=== PATIENT | male | born 1970 | race Two or more races ===

== ENCOUNTER 2018-02-16 11:49 | Emergency (ER) | payer SELFPAY ==
[2018-02-16 11:53] VITALS: BP 146/94
[2018-02-16] MEDS ORDERED: LIDOCAINE 2% VISCOUS SOLN 20 ML UDCUP PO ONE (12:40)
--- NOTE | 2018-02-16 12:46 | ER Document Report ---
HPI - HPI Pain Level: 5 Notes: Patient is a 47-year-old male with no significant past medical history who presents to the ED complaining of right lower dental pain #311 week. Patient states that he does have an appointment scheduled with a dentist in April, but has had continued pain and intermittent swelling on the right side of his face. Patient states that the pain will radiate up towards his right ear. He has not noticed any other obvious abscess or discharge. He is eating and drinking without any difficulties. He is urinating normally and having normal bowel movements. Patient does admit to smoking but denies IV drug use. Patient does note an allergy to penicillins which causes a rash. Denies any headache, fever , head injury, neck pain, URI, sore throat, chest pain, palpitations, syncope, cough, shortness of breath, wheeze, dyspnea, abdominal pain, nausea/vomiting/ diarrhea, urinary retention, dysuria, hematuria, or rash. - ROS Systems Reviewed and Negative: Yes All other systems reviewed and negative - CONSTITUTIONAL Constitutional: DENIES: Fever, Chills - EENT EENT: REPORTS: Ear Pain - right ear. DENIES: Sore Throat, Eye problems - NEURO Neurology: REPORTS: Headache. DENIES: Weakness, Vision blurred, Dizzinesss / Vertigo - CARDIOVASCULAR Cardiovascular: DENIES: Chest pain - RESPIRATORY Respiratory: DENIES: Trouble Breathing, Coughing - GASTROINTESTINAL Gastrointestinal: DENIES: Abdominal Pain, Black / Bloody Stools - URINARY Urinary: DENIES: Dysuria, Urgency, Frequency - REPRODUCTIVE Reproductive: DENIES: : - MUSCULOSKELETAL Musculoskeletal: DENIES: Extremity pain Past Medical History - Social History Smoking Status: Current Every Day Smoker Chew tobacco use (# tins/day): No Frequency of alcohol use: None Drug Abuse: None Family History: Reviewed & Not Pertinent Patient has suicidal ideation: No Patient has homicidal ideation: No Pulmonary Medical History: Reports: Hx Asthma - as child Renal/ Medical History: Denies: Hx Peritoneal Dialysis - Immunizations Hx Diphtheria, Pertussis, Tetanus Vaccination: Yes Vertical Provider Document - CONSTITUTIONAL Agree With Documented VS: Yes Notes: PHYSICAL EXAMINATION: GENERAL: Well-appearing, well-nourished and in no acute distress. HEAD: Atraumatic, normocephalic. EYES: Pupils equal round and reactive to light, extraocular movements intact, sclera anicteric, conjunctiva are normal. ENT: EAC clear b/l. TM's intact b/l without erythema, fluid, or perforation. Nares patent and without discharge. oropharynx clear without exudates. No tonsilar hypertrophy or erythema. Moist mucous membranes. No sinus tenderness. Uvula midline. No palatine shift. No tongue protrusion. No respiratory compromise. Mouth: Poor dentition. + mild decay and mild gingivitis. No obvious abscess or discharge noted. No facial swelling. + tenderness to tooth #31. NECK: Normal range of motion, supple without lymphadenopathy. No rigidity/ meningismus. LUNGS: Breath sounds clear to auscultation bilaterally and equal. No wheezes rales or rhonchi. HEART: Regular rate and rhythm without murmurs, rubs, gallops. NEUROLOGICAL: Cranial nerves grossly intact. Normal speech, normal gait. Normal sensory, motor exams PSYCH: Normal mood, normal affect. SKIN: Warm, Dry, normal turgor, no rashes or lesions noted. - INFECTION CONTROL TRAVEL OUTSIDE OF THE [place] IN LAST 30 DAYS: No Course - Re-evaluation Re-evalutation: 02/16/18 12:48 Patient is an afebrile, well-hydrated, 47-year-old male who presents to the ED with dental pain #31, suspect nerve root etiology versus infection. Vitals are acceptable. PE is otherwise unremarkable. No incision and drainage is warranted at this time. No labs or imaging warranted at this time based on H& P. Patient is tolerating p.o. without any difficulties. Patient was given viscous lidocaine as well as a prescription for clindamycin as he is allergic to penicillins. Low suspicion for any meningitis, sepsis, peritonsillar/ pharyngeal abscess, respiratory compromise, Reji's, temporal arteritis, or other emergent systemic condition at this time. Patient is aware this condition can change from initial presentation and he needs to monitor symptoms closely. Conservative measures otherwise for symptoms. Call to schedule an appointment with a dentist for further evaluation and management or keep scheduled appointment. Recheck with your PCM this week as well. Return to the ED with any worsening/concerning symptoms otherwise as reviewed in discharge. Patient is in agreement. - Vital Signs Vital signs: Temp Pulse Resp BP Pulse Ox 97.9 F 91 14 146/94 H 97 02/16/18 11:52 02/16/18 11:52 02/16/18 11:52 02/16/18 11:52 02/16/18 11:52 Discharge - Discharge Clinical Impression: Pain, dental Condition: Stable Disposition: HOME, SELF-CARE Instructions: Toothache ([facility]), Clindamycin ([facility]) Additional Instructions: [place] and floss twice daily Maintain fluid intake Take antibiotics as directed Mouthwash, salt water gargles, peroxide rinse as needed Tylenol/ibuprofen as needed Recheck with PCM this week Call today/tomorrow and schedule an appointment with your dentist for further evaluation or keep scheduled appointment in April Return to the ED with any worsening symptoms and/or development of fever, headache, facial swelling, swelling of lips/tongue/throat, trouble swallowing, drooling, hoarseness, neck pain/stiffness, chest pain, palpitations, syncope, shortness of breath, trouble breathing, abdominal pain, n/v/d, numbness/tingling , or other worsening symptoms that are concerning to you. Prescriptions: Clindamycin HCl [Cleocin 300 mg Capsule] 300 mg PO TID #30 capsule Forms: Elevated Blood Pressure, Smoking Cessation Education Referrals: [facility] [Provider Group] - Follow up as needed
== END 2018-02-16 12:50 | disposition home or self-care (01) ==
LOC: ER 11:49
DX: K02.9 Dental caries, unspecified (principal); K05.10 Chronic gingivitis, plaque induced; K08.89 Other specified disorders of teeth and supporting structures; R51 Headache; H92.01 Otalgia, right ear; F17.200 Nicotine dependence, unspecified, uncomplicated; Z88.0 Allergy status to penicillin
CPT/HCPCS: 99282; J3490

== ENCOUNTER 2018-02-19 19:06 | Emergency (ER) | payer SELFPAY ==
[2018-02-19] MEDS ORDERED: DIPH/PERTUSS(ACELL)/TETANUS VAC/PF 0.5 ML SYR (>=10YO) IM ONE (19:22)
[2018-02-19] MEDS ORDERED: AMLODIPINE BESYLATE 5 MG TABLET PO ONE (19:31)
[2018-02-19] MEDS ORDERED: ACETAMINOPHEN 325 MG TABLET PO ONE (19:31)
--- NOTE | 2018-02-19 20:12 | RADIOLOGY REPORT (SQ) ---
EXAM DESCRIPTION: HAND LEFT 3 VIEWS COMPLETED DATE/TIME: 02/19/2018 7:59 pm REASON FOR STUDY: gulshan nail into hand COMPARISON: None. EXAM PARAMETERS: NUMBER OF VIEWS: Three views. TECHNIQUE: AP, lateral and oblique radiographic images acquired of the left hand. LIMITATIONS: None. FINDINGS: MINERALIZATION: Normal. BONES: No acute fracture or dislocation. No worrisome bone lesions. JOINTS: No effusions. SOFT TISSUES: No soft tissue swelling. No foreign body. OTHER: No other significant finding. IMPRESSION: NEGATIVE STUDY OF THE LEFT HAND. NO RADIOGRAPHIC EVIDENCE OF ACUTE INJURY. TECHNICAL DOCUMENTATION: JOB ID: [id number] [employer]- All Rights Reserved Reading location - IP/workstation name: [email or web address]
--- NOTE | 2018-02-19 20:14 | ER Document Report ---
ED Hand/Wrist Injury - General Chief Complaint: Hand Injury Stated Complaint: HAND INJURY Time Seen by Provider: 02/19/18 19:15 Mode of Arrival: Ambulatory Information source: Patient Notes: 47-year-old male presents to ED for complaint of cutting his hand on a gulshan nail around 130 this afternoon. He states that a hard time making a fist since he injured his hand. He states his last tetanus shot was at least 30 years ago. TRAVEL OUTSIDE OF THE [place] IN LAST 30 DAYS: No - HPI Injury to: Hand Onset: This afternoon Where: Outdoors Timing: Still present Quality of pain: Achy, Throbbing Severity: Moderate Pain Level: 4 Context: Other - Nail to the palm of the left hand - Related Data Allergies/Adverse Reactions: Penicillins Allergy (Verified 02/16/18 11:49) Past Medical History - General Information source: Patient - Social History Smoking Status: Current Every Day Smoker Cigarette use (# per day): Yes - 2-2-1/2 packs per day Chew tobacco use (# tins/day): No Smoking Education Provided: Yes - 4 minutes Frequency of alcohol use: None Drug Abuse: None Occupation: Cook Lives with: Spouse/Significant other Family History: CAD, CVA, Hyperlipidemia, Hypertension, Malignancy. denies: Arthritis, COPD, DM, Thyroid Disfunction Patient has suicidal ideation: No Patient has homicidal ideation: No - Past Medical History Cardiac Medical History: Reports: None Pulmonary Medical History: Reports: Hx Asthma - as child EENT Medical History: Reports: None Neurological Medical History: Reports: None Endocrine Medical History: Reports: None Renal/ Medical History: Reports: None Malignancy Medical History: Reports None GI Medical History: Reports: None Musculoskeltal Medical History: Reports None Skin Medical History: Reports None Psychiatric Medical History: Reports: None Traumatic Medical History: Reports: None Infectious Medical History: Reports: None Surgical Hx: Negative Past Surgical History: Reports: None - Immunizations Immunizations up to date: Yes Hx Diphtheria, Pertussis, Tetanus Vaccination: Yes - 02/19/2018 Review of Systems - Review of Systems Constitutional: No symptoms reported EENT: No symptoms reported Cardiovascular: No symptoms reported Respiratory: No symptoms reported Gastrointestinal: No symptoms reported Genitourinary: No symptoms reported Male Genitourinary: No symptoms reported Musculoskeletal: No symptoms reported Skin: Other - SD nail puncture wound to the left palm Hematologic/Lymphatic: No symptoms reported Neurological/Psychological: No symptoms reported Physical Exam - Vital signs Vitals: Temp Pulse Resp BP Pulse Ox 98.6 F 98 16 206/115 H 99 02/19/18 19:13 02/19/18 19:13 02/19/18 19:13 02/19/18 19:13 02/19/18 19:13 Interpretation: Normal - General General appearance: Appears well, Alert - HEENT Head: Normocephalic, Atraumatic Eyes: Normal Pupils: PERRL - Respiratory Respiratory status: No respiratory distress Chest status: Nontender Breath sounds: Normal Chest palpation: Normal - Cardiovascular Rhythm: Regular Heart sounds: Normal auscultation Murmur: No - Abdominal Inspection: Normal Distension: No distension Bowel sounds: Normal Tenderness: Nontender Organomegaly: No organomegaly - Back Back: Normal, Nontender - Extremities General upper extremity: Normal inspection, Normal color, Normal temperature General lower extremity: Normal inspection, Nontender, Normal color, Normal ROM , Normal temperature, Normal weight bearing. No: Trevor's sign Hand: Tender, No evidence of human bite, No evidence of FB, Other - States he injured his hand on a gulshan nail to the palm of the left hand - Neurological Neuro grossly intact: Yes Cognition: Normal Orientation: AAOx4 [place] Coma Scale Eye Opening: Spontaneous [place] Coma Scale Verbal: Oriented [place] Coma Scale Motor: Obeys Commands [place] Coma Scale Total: 15 Speech: Normal Motor strength normal: LUE, RUE, LLE, RLE Sensory: Normal - Psychological Associated symptoms: Normal affect, Normal mood - Skin Skin Temperature: Warm Skin Moisture: Dry Skin Color: Normal Location of irregularity: Other - Puncture wound to the left hand Irregularity with: Swelling, Tenderness. negative: Warmth Course - Re-evaluation Re-evalutation: 02/19/18 20:[address] Tanner concering HTN with no symptom but no primary md. he recommended Norvasc 5 mg p.o. daily and to have him follow-up with her primary doctor. Patient was treated with Norvasc for his elevated blood pressure and given instructions to follow-up with a primary doctor within the next 2 weeks to have his blood pressure rechecked and started on a medication. I will give him 2 weeks worth of Norvasc to last until he gets a primary doctor. He was also treated with Keflex p.o. and tetanus immunization for his puncture wound to the left hand. Patient will be given a prescription for Keflex for this wound. He was also soaked in Betadine and water and given instructions on soaking in warm water and soap twice a day for the next 4 days and apply bacitracin to the injuries. Patient verbalized understanding and agreement with this treatment plan and he will be discharged home. 47 - Vital Signs Vital signs: Temp Pulse Resp BP Pulse Ox 98.6 F 78 16 182/111 H 100 02/19/18 20:36 02/19/18 20:36 02/19/18 20:36 02/19/18 20:36 02/19/18 20:36 - Diagnostic Test Radiology reviewed: Image reviewed, Reports reviewed Discharge - Discharge Clinical Impression: nail puncture wound to left hand HTN (hypertension) Qualifiers: Hypertension type: unspecified Qualified Code(s): I10 - Essential (primary) hypertension Condition: Stable Disposition: HOME, SELF-CARE Instructions: Family Physicians / Practices Additional Instructions: Puncture Wound You have a puncture wound. Because these wounds often penetrate deeply beneath the skin, you must observe them carefully for complications. The wound has been examined for retained foreign material and for damage to tendons and nerves. The area should be rested and elevated for 24 hours. Then you can use the injured part -- if moving it is painfree. Punctures of the hand or foot may require splinting or crutches. The dressing should be changed daily until the wound is healed. Watch for signs of infection. Call the doctor immediately if redness, swelling, warmth, increasing pain, or wound drainage occur. If you develop numbness, persistent bleeding, or inability to move the injured area, please return for prompt re-evaluation. High Blood Pressure, Requiring Treatment Your blood pressure is high. This is called "hypertension." Today's reading was___206/116 (normal is less than 140/90). Your history and exam suggest that this is not a temporary problem. You need treatment of your blood pressure. Pre-hypertension/Hypertension: The patient has been informed that they may have pre-hypertension or Hypertension based on a blood pressure reading in the emergency department. I recommend that the patient call the primary care provider listed on their discharge instructions or a physician of their choice this wee to arrange follow up for further evaluation of possible pre- hypertension or Hypertension. If left untreated, high blood pressure greatly increases your risk of heart attack and stroke. Please don't ignore this problem. If you have blood pressure medicine but aren't using it regularly, start taking it again. Some simple things you can do to help are: Get some aerobic exercise for at least 20 minutes on a daily basis. (See your doctor before beginning any new exercise program.) Eat a low-fat diet. Lose excess weight. Avoid salty foods and avoid adding salt to any of the foods you eat. Avoid diet pills, decongestants, "energizing" herbs, and other medicines that elevate blood pressure. There are many different medicines that treat blood pressure. If your medication causes unpleasant side effects, call your doctor. There are others you can try. Treating hypertension is a life-long investment in your health. Calcium Channel Blockers A medication of the calcium channel ky type has been prescribed for you. Examples of this type of medicine are Calan, Isoptin, Procardia, and Cardizem. These medicines have a variety of uses, including prevention of angina attacks, treatment of blood pressure, regulation of certain heart rhythm problems, and prevention of migraine headaches. Calcium channel blockers work by interfering with the flow of calcium in cell membranes. This results in dilation of blood vessels, and slowing of electrical conduction in the heart. A slight dizziness (due to a fall in blood pressure) may occur with the first dose, and sometimes even with later doses. This may make you prone to dizziness if you stand up suddenly. Call the doctor if lightheadedness is severe, or if you develop palpitations, shortness of breath, or any other new or alarming symptoms. Cephalexin The antibiotic you've been prescribed is a member of the cephalosporin class. This type of antibiotic covers a wide variety of infections, including those of the skin, lungs, and urinary tract. It's useful for staph infections. This antibiotic is slightly similar to the penicillin family. In rare cases , a person who is allergic to penicillin will also be allergic to this medication. If you have had a severe allergic reaction to penicillin, and have not taken this antibiotic since that time, notify your doctor. Antibiotics which cover many germs ("broad spectrum" antibiotics) are more likely to cause diarrhea or "yeast" infections. Women prone to vaginal yeast problems may suffer an attack after taking this antibiotic. In infants, oral thrush (white spots "stuck" on the cheek) or yeast diaper rash may result. See your doctor if these problems occur. Call at once if you develop itching, hives , shortness of breath, or lightheadedness. SOAP CLEANSING: Gently wash the wound daily using a mild soap (like Ivory, Phisoderm, Neutrogena). Use warm water, rubbing gently until all debris, ooze, and crusting have been washed from the wound. Allow to dry briefly (about 10 minutes) after cleaning. Repeat this cleansing at least three times a day for the first two days and then once or twice a day. ANTIBIOTIC OINTMENT PROTECTION: Your wounds are such that dressing them is not practical or optional. After cleansing, you should apply a thin coating of antibiotic ointment ( Bacitracin, not Neosporin) to the wounds at least three times daily. This lessens infection risk, and may decrease the amount of scarring. Use a q-tip or dull butter knife, not your finger, to apply this ointment. Any debris or ooze which builds up in the ointment should be gently rubbed off with a sterile gauze pad. Harder crusting may need to be gently scrubbed off with a clean wash cloth with soap and warm water, perhaps applying a warm, wet wash cloth to the wound for ten minutes first. Development of redness, severe itching, or blistering may mean allergy to the ointment. See the doctor. TETANUS IMMUNIZATION GIVEN: You have been given an immunization against tetanus. Please record this in your records. In general, a booster is needed only once every 10 years. The tetanus shot protects against tetanus or "lockjaw," which is a complication of certain wound infections (the tetanus shot cannot protect against the actual infection). The immunization site may become warm and red due to local reaction. If this occurs, apply warm compresses and take aspirin or ibuprofen to reduce inflammation and discomfort. Return for evaluation if the reaction becomes severe. FOLLOW-UP CARE: If you have been referred to a physician for follow-up care, call the physician s office for an appointment as you were instructed or within the next two days. If you experience worsening or a significant change in your symptoms, notify the physician immediately or return to the Emergency Department at any time for re-evaluation. Prescriptions: Amlodipine Besylate [Norvasc 5 mg Tablet] 5 mg PO DAILY #14 tablet Cephalexin Monohydrate [Keflex 500 mg Capsule] 500 mg PO QID #20 capsule Forms: Elevated Blood Pressure, Special Work Note, Smoking Cessation Education , Return to Work
[2018-02-19] MEDS ORDERED: CEPHALEXIN 500 MG CAPSULE PO ONE (20:16)
[2018-02-19 20:39] VITALS: BP 182/111
== END 2018-02-19 20:41 | disposition home or self-care (01) ==
LOC: ER 19:06
DX: S61.432A Puncture wound without foreign body of left hand, initial encounter (principal); W45.0XXA Nail entering through skin, initial encounter; Y99.0 Civilian activity done for income or pay; I10 Essential (primary) hypertension; F17.210 Nicotine dependence, cigarettes, uncomplicated; Z71.6 Tobacco abuse counseling; Z88.0 Allergy status to penicillin; Z23 Encounter for immunization
CPT/HCPCS: 90471; 90715; 99283

== ENCOUNTER 2018-04-06 18:57 | Emergency (ER) | payer SELFPAY ==
[2018-04-06] MEDS ORDERED: BUPIVACAINE HCL 0.5 % INJ/PF 30 ML SDV INJ ONE (19:21)
[2018-04-06] MEDS ORDERED: LIDOCAINE 1% INJ-PF (10 MG/ML) 30 ML SDV INJ ONE (19:21)
--- NOTE | 2018-04-06 19:21 | RADIOLOGY REPORT (SQ) ---
EXAM DESCRIPTION: FINGER LEFT COMPLETED DATE/TIME: 04/06/2018 7:09 pm REASON FOR STUDY: trauma, hammer COMPARISON: None. NUMBER OF VIEWS: Three views. TECHNIQUE: AP, lateral, and oblique images acquired of the left fourth finger. LIMITATIONS: None. FINDINGS: MINERALIZATION: Normal. BONES: No acute fracture or dislocation. No worrisome bone lesions. SOFT TISSUES: No soft tissue swelling. No foreign body. OTHER: No other significant finding. IMPRESSION: NO RADIOGRAPHIC EVIDENCE OF ACUTE INJURY. COMMENT: SITE OF TRAUMA/COMPLAINT MARKED/STAMP COMPLETED: YES. TECHNICAL DOCUMENTATION: JOB ID: [id number] [employer]- All Rights Reserved Reading location - IP/workstation name: [email or web address]
--- NOTE | 2018-04-06 19:24 | ER Document Report ---
ED Hand/Wrist Injury - General Chief Complaint: Finger Injury Stated Complaint: FINGER INJURY Time Seen by Provider: 04/06/18 19:08 Mode of Arrival: Ambulatory Information source: Patient TRAVEL OUTSIDE OF THE [place] IN LAST 30 DAYS: No - HPI Patient complains to provider of: left ring finger nail injury Onset: This afternoon Notes: Patient is here with complaints of left ring finger nail injury. He states he was using a hammer when he actually hit himself in the left ring finger and the base of the nail popped out of the cuticle. He states that he used nail clippers cut off the proximal aspect of his fingernail but the distal aspect is still attached to the finger nail bed. No redness or draining. Tetanus is up- to-date. No numbness, tingling, weakness. No fever. No significant pain. No other complaints at this time. No other injury. - Related Data Allergies/Adverse Reactions: Penicillins Allergy (Verified 04/06/18 18:58) Past Medical History - Social History Smoking Status: Current Every Day Smoker Chew tobacco use (# tins/day): No Frequency of alcohol use: None Drug Abuse: None Family History: CAD, CVA, Hyperlipidemia, Hypertension, Malignancy. denies: Arthritis, COPD, DM, Thyroid Disfunction Patient has suicidal ideation: No Patient has homicidal ideation: No Pulmonary Medical History: Reports: Hx Asthma - as child Renal/ Medical History: Denies: Hx Peritoneal Dialysis - Immunizations Immunizations up to date: Yes Hx Diphtheria, Pertussis, Tetanus Vaccination: Yes - 02/19/2018 Review of Systems - Review of Systems -: Yes All other systems reviewed and negative Physical Exam - Notes Notes: GENERAL: alert, cooperative, nontoxic, no distress. HEAD: normocephalic, atraumatic EYES: conjunctiva pink without discharge, no external redness or swelling. EARS: no external swelling, no external redness NOSE: atraumatic, no external swelling MOUTH/THROAT: mucous membranes moist and pink NECK: soft, supple, full range of motion, no meningismus. CHEST: no distress, lungs clear and equal throughout. No wheezing, rales, rhonchi. CARDIAC: regular rate and rhythm, no murmur, normal capillary refill, normal pulses. BACK: full range of motion, no CVA tenderness. EXTREMITIES: full range of motion of all extremities. No redness, no swelling. The proximal ring finger nail has been removed. The distal aspect is still attached the nail bed. There is no redness or swelling. No tenderness. Normal cap refill and sensation distally. NEURO: alert and oriented 3, no focal deficits, full range of motion of all extremities. PYSCH: appropriate mood, affect. Patient is cooperative. SKIN: pink, warm, dry, no rash. Course - Re-evaluation Re-evalutation: 04/06/18 20:23 Patient is nontoxic-appearing with stable vitals. Is here with injury to the left ring finger. He externally hit his fingernail with a hammer and the proximal portion of the nail was injured. He clipped this with fingernail clippers and was made to remove the remainder of the nail. No fever. No redness or drainage. No numbness, tingling, weakness. On exam he has no signs of infection or foreign body. I was able to perform a digital block and per remove the remainder of the fingernail. There is no obvious signs of infection. There is a small bit of nail in the cuticle area. Patient will be discharged home with instructions to keep the area clean and dry. Her prescription for Naprosyn. Follow-up if not better in the next week, sooner for worsening pain, fever, redness, drainage, any further concerns. The patient is noted to have elevated blood pressure during today's emergency department visit. The patient was informed of this finding. The patient was instructed that this may be related to pre-hypertension and requires further evaluation with a primary care provider. The patient has no hypertensive symptoms at this time. The patient's emergency department workup and current diagnosis were explained to the patient and or family. Follow-up instructions were provided. Medications if prescribed were discussed. Instructions for when to return to the emergency department including specific worrisome symptoms were discussed with the patient and/or family. - Diagnostic Test Radiology reviewed: Image reviewed, Reports reviewed - X-ray negative of the left hand Procedures - Laceration/Wound Repair left ring fingernail Wound length (cm): 1 Wound's Depth, Shape: Other - Partial nail avulsion Laceration pre-procedure: Sterile PPE donned, Shur-Clens applied Anesthetic type: 0.5% Bupivacaine Wound explored: Clean, No foreign body removed Notes: 06/03/18 20:26 The distal portion of the left ring finger fingernail was easily removed with scissors. Sterile dressing was applied. He does appear to be a small bit of nail still in the cuticle which will believe they are to encourage new nail growth. No signs of infection at this time. Patient tolerated procedure well. Discharge - Discharge Clinical Impression: Fingernail avulsion, partial Qualifiers: Encounter type: initial encounter Qualified Code(s): S61.309A - Unspecified open wound of unspecified finger with damage to nail, initial encounter Condition: Stable Disposition: HOME, SELF-CARE Instructions: Avulsed Nail ([facility]) Additional Instructions: Take medication as needed for pain. Tylenol as needed for pain. Keep wound clean and dry. Follow-up if not better in 1 week, sooner for worsening pain, fever, redness, swelling, drainage, numbness, tingling, weakness, persistent vomiting, or for any further concerns. Your blood pressure was elevated during today's visit. Have this rechecked with your doctor. Prescriptions: Naproxen [Naprosyn] 500 mg PO BID #20 tablet Forms: Elevated Blood Pressure, Smoking Cessation Education, Restricted Release Referrals: [facility] [Provider Group] - Follow up as needed
== END 2018-04-06 20:46 | disposition home or self-care (01) ==
LOC: ER 18:57
PROC: 0HDQXZZ Extraction of Finger Nail, External Approach (ICD-10-PCS; principal; 2018-04-06)
DX: S61.309A Unspecified open wound of unspecified finger with damage to nail, initial encounter (principal); F17.200 Nicotine dependence, unspecified, uncomplicated; W22.8XXA Striking against or struck by other objects, initial encounter; Z88.0 Allergy status to penicillin
CPT/HCPCS: 99283; 73140; 11730; J3490 ×2

== ENCOUNTER 2019-03-24 08:15 | Emergency (ER) | payer SELFPAY ==
[2019-03-24] MEDS ORDERED: AMLODIPINE BESYLATE 5 MG TABLET PO ONE (10:22)
--- NOTE | 2019-03-24 10:36 | ER Document Report ---
ED General - General Chief Complaint: Vomiting/Diarrhea Stated Complaint: HEADACHE Time Seen by Provider: 03/24/19 10:22 Information source: Patient Notes: 48-year-old male with past medical history of high blood pressure who presents today with the onset yesterday of an intermittent frontal headache. No blurry vision. No trauma. No weakness or numbness. Patient denies any aggravating or relieving factors. Patient's been told that he has high blood pressure and is supposed to be taking blood pressure medications. He states "I do not like pills". He has not taken his blood pressure medications in greater than 1 year. He does not remember what those blood pressure medications are. Patient denies any chest pain, leg swelling, focal weakness or numbness. Patient has had 2 episodes of nonbilious nonbloody vomiting in the last 24 hours. TRAVEL OUTSIDE OF THE [place] IN LAST 30 DAYS: No - Related Data Allergies/Adverse Reactions: Penicillins Allergy (Verified 03/24/19 08:15) Past Medical History - Social History Smoking Status: Current Every Day Smoker Family History: CAD, CVA, Hyperlipidemia, Hypertension, Malignancy. denies: Arthritis, COPD, DM, Thyroid Disfunction Patient has suicidal ideation: No Patient has homicidal ideation: No Pulmonary Medical History: Reports: Hx Asthma - as child Renal/ Medical History: Denies: Hx Peritoneal Dialysis - Immunizations Immunizations up to date: Yes Hx Diphtheria, Pertussis, Tetanus Vaccination: Yes - 02/19/2018 Review of Systems - Review of Systems Constitutional: denies: Fever EENT: denies: Blurred vision Cardiovascular: denies: Chest pain, Palpitations Respiratory: denies: Short of breath Gastrointestinal: Vomiting Genitourinary: denies: Dysuria Musculoskeletal: denies: Leg swelling Neurological/Psychological: Other - no slurred speech -: Yes All other systems reviewed and negative Physical Exam - Vital signs Vitals: Temp Pulse Resp BP Pulse Ox 97.9 F 77 18 209/104 H 98 03/24/19 08:19 03/24/19 08:19 03/24/19 08:19 03/24/19 08:19 03/24/19 08:19 Notes: Reviewed vital signs and nursing note as charted by RN. CONSTITUTIONAL: Alert and oriented and responds appropriately to questions. Well-appearing; well-nourished HEAD: Normocephalic; atraumatic EYES: PERRL; full extraocular range of motion ENT: Normal nose; no rhinorrhea; moist mucous membranes; pharynx without lesions noted NECK: Supple without meningismus; non-tender; no cervical lymphadenopathy, no masses CARD: Regular rate and rhythm; no murmurs; symmetric distal pulses RESP: Normal chest excursion without splinting or tachypnea; breath sounds clear and equal bilaterally ABD/GI: Normal bowel sounds; non-distended; soft, non-tender BACK: The back appears normal and is non-tender to palpation EXT: Normal ROM in all joints; non-tender to palpation; no edema SKIN: No acute lesions noted NEURO: CN 2-12 intact; 5/5 bilateral upper and lower extremity strength with sensation intact to light touch PSYCH: The patient's mood and manner are appropriate. Grooming and personal hygiene are appropriate. Course - Re-evaluation Re-evalutation: 03/24/19 10:36 Given the above history and physical examination, with blood pressure as recorded, noncompliant with medications, I will obtain a basic CBC, chemistry, CT scan of the head, and reassess. Given the intermittent nature of the headac hes, with no trauma, not the worst headache of his life, no neck pain, no fevers, no blurry vision, no temporal erythema or tenderness, I do believe subarachnoid hemorrhage, bacterial meningitis, temporal arteritis, and/or acute angle-closure glaucoma to be extremely unlikely at this time. I have convinced the patient that he should be taking Norvasc or other blood pressure medication. He has agreed. I will provide a one-time dose here in the emergency department. 03/24/19 11:22 CT imaging as recorded. Labs as recorded. Patient has no abdominal pain. No focal neurological deficits. Patient's headache is improved. I will start the patient on a short course of Norvasc with strict return precautions and follow- up with the primary care provider. - Vital Signs Vital signs: Temp Pulse Resp BP Pulse Ox 97.9 F 77 18 209/104 H 98 03/24/19 08:19 03/24/19 08:19 03/24/19 08:19 03/24/19 08:19 03/24/19 08:19 - Laboratory Result Diagrams: 03/24/19 10:29 03/24/19 10:29 Laboratory results interpreted by me: 03/24/19 10:29 Chloride 109 H Total Bilirubin 1.4 H ALT 74 H Discharge - Discharge Clinical Impression: Hypertensive urgency Headache Qualifiers: Headache type: unspecified Headache chronicity pattern: unspecified pattern Intractability: not intractable Qualified Code(s): R51 - Headache Condition: Good Disposition: HOME, SELF-CARE Additional Instructions: Come back immediately for any increased pain, weakness or numbness, fevers or vomiting, blurry vision, chest pain, leg swelling, or any other acute problems. Please start taking the Norvasc 5 mg daily as discussed and please follow-up with your primary care provider.
[2019-03-24 10:51] LABS: ABSOLUTE EOSINOPHILS # (AUTO) 0.1 10^3/uL (0.0-0.6); ABSOLUTE LYMPHOCYTES (AUTO) 1.7 10^3/uL (0.5-4.7); ABSOLUTE MONOCYTES (AUTO) 0.4 10^3/uL (0.1-1.4); ABSOLUTE NEUT (AUTO) 2.9 10^3/uL (1.7-8.2); BASOPHILS % (AUTO) 0.4 % (0-2); EOSINOPHILS % (AUTO) 1.4 % (0-6); HEMATOCRIT 46.3 % (37.9-51.0); HEMOGLOBIN 14.9 g/dL (13.5-17.0); LYMPHOCYTES % (AUTO) 33.5 % (13-45); MEAN CORPUSCULAR HEMOGLOBIN 27.5 pg (27.0-33.4); MEAN CORPUSCULAR HGB CONC 32.1 g/dL (32.0-36.0); MEAN CORPUSCULAR VOLUME 86 fl (80-97); MONOCYTES % (AUTO) 8.2 % (3-13); PLATELET COUNT 202 10^3/uL (150-450); RED CELL DISTRIBUTION WIDTH 12.9 % (11.5-14.0); SEGMENTED NEUTROPHILS % (AUTO) 56.5 % (42-78); TOTAL CELLS COUNTED % (AUTO) 100 %; WHITE BLOOD COUNT 5.1 10^3/uL (4.0-10.5)
--- NOTE | 2019-03-24 10:58 | RADIOLOGY REPORT (SQ) ---
EXAM DESCRIPTION: CT HEAD WITHOUT COMPLETED DATE/TIME: 03/24/2019 10:47 am REASON FOR STUDY: 35; headache and HTN COMPARISON: 05/08/2013 TECHNIQUE: Axial images acquired through the brain without intravenous contrast. Images reviewed wi th bone, brain and subdural windows. Additional sagittal and coronal reconstructions were generated. Images stored on PACS. All CT scanners at this facility use dose modulation, iterative reconstruction, and/or weight based d osing when appropriate to reduce radiation dose to as low as reasonably achievable (ALARA). [facility]: Dose Right [facility]: CareDose [facility]: Dose Right [facility]: Teradose 4D [facility]: Smart Le Vision Pictures RADIATION DOSE: CT Rad equipment meets quality standard of care and radiation dose reduction techniq ues were employed. CTDIvol: 53.2 mGy. DLP: 1124 mGy-cm. mGy. LIMITATIONS: None. FINDINGS: VENTRICLES: Normal size and contour. CEREBRUM: No masses. No hemorrhage. No midline shift. No evidence for acute infarction. Normal gra y/white matter differentiation. No areas of low density in the white matter. CEREBELLUM: No masses. No hemorrhage. No alteration of density. No evidence for acute infarction. EXTRAAXIAL SPACES: No fluid collections. No masses. ORBITS AND GLOBE: No intra- or extraconal masses. Normal contour of globe without masses. CALVARIUM: No fracture. PARANASAL SINUSES: There is a mucous retention cyst in right maxillary sinus. SOFT TISSUES: No mass or hematoma. OTHER: No other significant finding. IMPRESSION: Right maxillary sinus disease with no acute intracranial imaging findings. EVIDENCE OF ACUTE STROKE: NO. COMMENT: Quality ID # [id number]: Final reports with documentation of one or more dose reduction techniques (e.g., Automated exposure control, adjustment of the mA and/or kV according to patient size, use of iterative reconstruction technique) TECHNICAL DOCUMENTATION: JOB ID: [id number] [employer]- All Rights Reserved Reading location - IP/workstation name: [email or web address]
[2019-03-24 11:11] LABS: ALANINE AMINOTRANSFERASE 74 U/L (21-72); ALBUMIN 4.3 g/dL (3.5-5.0); ALKALINE PHOSPHATASE 77 U/L (38-126); ANION GAP 8 (5-19); ASPARTATE AMINO TRANSFERASE 46 U/L (17-59); BILIRUBIN,DIRECT 0.2 mg/dL (0.0-0.4); BILIRUBIN,TOTAL 1.4 mg/dL (0.2-1.3); BLOOD UREA NITROGEN 15 mg/dL (7-20); CARBON DIOXIDE 27 mmol/L (22-30); CHLORIDE 109 mmol/L (98-107); GLUCOSE 92 mg/dL (75-110); POTASSIUM 4.4 mmol/L (3.6-5.0); SODIUM 143.5 mmol/L (137-145); TOTAL PROTEIN 7.7 g/dL (6.3-8.2)
[2019-03-24 11:37] VITALS: BP 164/96
== END 2019-03-24 11:37 | disposition home or self-care (01) ==
LOC: ER 08:15
DX: I16.0 Hypertensive urgency (principal); R11.10 Vomiting, unspecified; R19.7 Diarrhea, unspecified; R51 Headache; F17.200 Nicotine dependence, unspecified, uncomplicated; Z91.14 Patient's other noncompliance with medication regimen
CPT/HCPCS: 36415; 70450; 80053; 85025; 99284

== ENCOUNTER 2019-10-30 08:36 | Emergency (ER) | payer SELFPAY ==
[2019-10-30 08:43] VITALS: BP 165/126
--- NOTE | 2019-10-30 09:39 | ER Document Report ---
HPI - HPI Time Seen by Provider: 10/30/19 09:30 Pain Level: 5 Notes: 49-year-old male patient presenting with cough, congestion, nausea, vomiting and fever that began yesterday. Patient denies any abdominal pain or diarrhea. Patient reports exposure to multiple sick contacts. Has not taken any medication for symptoms as he states he does not like taking pills. - REPRODUCTIVE Reproductive: DENIES: : Past Medical History - General Information source: Patient - Social History Smoking Status: Never Smoker Frequency of alcohol use: None Drug Abuse: None Family History: CAD, CVA, Hyperlipidemia, Hypertension, Malignancy. denies: Arthritis, COPD, DM, Thyroid Disfunction Patient has suicidal ideation: No Patient has homicidal ideation: No Pulmonary Medical History: Reports: Hx Asthma - as child Renal/ Medical History: Denies: Hx Peritoneal Dialysis - Immunizations Immunizations up to date: Yes Hx Diphtheria, Pertussis, Tetanus Vaccination: Yes - 02/19/2018 Vertical Provider Document - CONSTITUTIONAL Notes: PHYSICAL EXAMINATION: GENERAL: Well-appearing, well-nourished and in no acute distress. HEAD: Atraumatic, normocephalic. EYES: Pupils equal round and reactive to light, extraocular movements intact, sclera anicteric, conjunctiva are normal. ENT: Nares patent, oropharynx clear without exudates. Moist mucous membranes. NECK: Normal range of motion, supple without lymphadenopathy LUNGS: Breath sounds clear to auscultation bilaterally and equal. No wheezes rales or rhonchi. HEART: Regular rate and rhythm without murmurs ABDOMEN: Soft, nontender, nondistended abdomen. No guarding, no rebound. No masses appreciated. Musculoskeletal: Normal range of motion, no pitting or edema. No cyanosis. NEUROLOGICAL: Cranial nerves grossly intact. Normal speech, normal gait. Normal sensory, motor exams PSYCH: Normal mood, normal affect. SKIN: Warm, Dry, normal turgor, no rashes or lesions noted. - INFECTION CONTROL TRAVEL OUTSIDE OF THE [place] IN LAST 30 DAYS: No Course - Re-evaluation Re-evalutation: Patient appears well, nontoxic, physical exam unremarkable. Patient declines influenza testing. Patient will be discharged home at this time. Encourage patient to be compliant with his antihypertensives. ED return precautions discussed. Patient verbalized understanding and agreement with same. - Vital Signs Vital signs: Temp Pulse Resp BP Pulse Ox 97.8 F 81 16 165/126 H 100 10/30/19 08:42 10/30/19 08:42 10/30/19 08:42 10/30/19 08:42 10/30/19 08:42 Discharge - Discharge Clinical Impression: Flu-like symptoms, Medication refill Hypertension Qualifiers: Hypertension type: unspecified Qualified Code(s): I10 - Essential (primary) hypertension Condition: Stable Disposition: HOME, SELF-CARE Additional Instructions: Your symptoms are most consistent with influenza. Take medications as prescribed. Drink plenty of fluids. Take Tylenol or ibuprofen for any pain, fever or body aches. Stay away from people. It Is very important to get your blood pressure under control. Return to the emergency department any new or worsening symptoms. Prescriptions: Amlodipine Besylate [Norvasc 5 mg Tablet] 5 mg PO DAILY #30 tablet Promethazine HCl [Phenergan 25 mg Tablet] 1 - 2 tab PO Q6H PRN #15 tablet PRN Reason: Forms: Return to Work
== END 2019-10-30 09:38 | disposition home or self-care (01) ==
LOC: ER 08:36
DX: R05 Cough (principal); I10 Essential (primary) hypertension; Z76.0 Encounter for issue of repeat prescription; R11.2 Nausea with vomiting, unspecified; R50.9 Fever, unspecified
CPT/HCPCS: 99283

== ENCOUNTER 2020-01-07 09:28 | Emergency (ER) | payer SELFPAY ==
[2020-01-07] MEDS ORDERED: IPRATROPIUM/ALBUTEROL 0.5-2.5 MG/3 ML AMPUL NEB ONE (09:58)
[2020-01-07] MEDS ORDERED: METHYLPREDNISOLONE INJ 125 MG/2 ML SDV IV ONE (09:58)
--- NOTE | 2020-01-07 10:11 | RADIOLOGY REPORT (SQ) ---
EXAM DESCRIPTION: CHEST SINGLE VIEW COMPLETED DATE/TIME: 01/07/2020 9:58 am REASON FOR STUDY: SOB COMPARISON: AP chest 08/14/2008 EXAM PARAMETERS: NUMBER OF VIEWS: One view. TECHNIQUE: Single frontal radiographic view of the chest acquired. RADIATION DOSE: NA LIMITATIONS: None. FINDINGS: LUNGS AND PLEURA: Minimal bandlike lingular atelectasis. Lungs are otherwise grossly clear. No pleural effusion. No pneumothorax. MEDIASTINUM AND HILAR STRUCTURES: No masses. Contour normal. HEART AND VASCULAR STRUCTURES: Mild cardiomegaly BONES: No acute findings. HARDWARE: None in the chest. OTHER: No other significant finding. IMPRESSION: Mild cardiomegaly. Lingular atelectasis TECHNICAL DOCUMENTATION: JOB ID: [id number] [employer]- All Rights Reserved Reading location - IP/workstation name: [email or web address]
[2020-01-07 10:19] LABS: VENOUS BLOOD HCO3 21.9 mmol/L (20-32); VENOUS BLOOD PCO2 38.4 mmHg (35-63); VENOUS BLOOD PH 7.37 (7.30-7.42)
[2020-01-07 10:29] LABS: ABSOLUTE EOSINOPHILS # (AUTO) 0.1 10^3/uL (0.0-0.6); ABSOLUTE LYMPHOCYTES (AUTO) 1.1 10^3/uL (0.5-4.7); ABSOLUTE MONOCYTES (AUTO) 0.3 10^3/uL (0.1-1.4); ABSOLUTE NEUT (AUTO) 6.7 10^3/uL (1.7-8.2); BASOPHILS % (AUTO) 0.5 % (0-2); EOSINOPHILS % (AUTO) 0.8 % (0-6); HEMATOCRIT 42.5 % (37.9-51.0); HEMOGLOBIN 13.8 g/dL (13.5-17.0); LYMPHOCYTES % (AUTO) 13.5 % (13-45); MEAN CORPUSCULAR HGB CONC 32.4 g/dL (32.0-36.0); MEAN CORPUSCULAR VOLUME 87 fl (80-97); MONOCYTES % (AUTO) 4.1 % (3-13); PLATELET COUNT 180 10^3/uL (150-450); RED BLOOD COUNT 4.91 10^6/uL (4.35-5.55); RED CELL DISTRIBUTION WIDTH 12.9 % (11.5-14.0); SEGMENTED NEUTROPHILS % (AUTO) 81.1 % (42-78); TOTAL CELLS COUNTED % (AUTO) 100 %; WHITE BLOOD COUNT 8.2 10^3/uL (4.0-10.5)
[2020-01-07 10:36] LABS: APPEARANCE,URINE CLEAR; BILIRUBIN,URINE NEGATIVE (NEGATIVE); COLOR,URINE YELLOW; GLUCOSE, URINE 50 mg/dL (NEGATIVE); KETONES,URINE NEGATIVE (NEGATIVE); LEUKOCYTE ESTERASE,URINE NEGATIVE (NEGATIVE); NITRITE,URINE NEGATIVE (NEGATIVE); PROTEIN,URINE 100 mg/dL (NEGATIVE); URINE SPECIFIC GRAVITY 1.015
[2020-01-07 10:52] LABS: ALBUMIN 4.3 g/dL (3.5-5.0); ALKALINE PHOSPHATASE 80 U/L (38-126); ANION GAP 7 (5-19); ASPARTATE AMINO TRANSFERASE 79 U/L (17-59); BILIRUBIN,TOTAL 1.3 mg/dL (0.2-1.3); BLOOD UREA NITROGEN 19 mg/dL (7-20); CALCIUM 8.8 mg/dL (8.4-10.2); CARBON DIOXIDE 25 mmol/L (22-30); CHLORIDE 110 mmol/L (98-107); GLUCOSE 132 mg/dL (75-110); POTASSIUM 3.9 mmol/L (3.6-5.0); TOTAL PROTEIN 7.4 g/dL (6.3-8.2)
[2020-01-07] MEDS: MAGNESIUM SULFATE/D5W 1 GM/100 ML RTUPB IV SCH ×2 (12:08→12:09)
--- NOTE | 2020-01-07 13:03 | EKG REPORT ---
SEVERITY:- ABNORMAL ECG - SINUS RHYTHM BIATRIAL ABNORMALITIES LEFT VENTRICULAR HYPERTROPHY BORDERLINE PROLONGED QT INTERVAL : Confirmed by: Estuardo Madera MD 07-Jan-2020 13:02:39
[2020-01-07] MEDS ORDERED: ALBUTEROL SULFATE HFA (90 MCG/PUFF) 8 GM MDI (1 MDI/ER DISP) IH ONE (14:07)
[2020-01-07] MEDS ORDERED: AZITHROMYCIN 250 MG TABLET PO ONE (14:13)
[2020-01-07 15:28] VITALS: BP 175/108
--- NOTE | 2020-01-07 18:29 | ER Document Report ---
Entered by JANAY ANDERSON SCRIBE 01/07/20 1008 Acting as scribe for:GRETCHEN NEGRO DO ED Respiratory Problem - General Chief Complaint: Shortness Of Breath Stated Complaint: SHORTNESS OF BREATH Time Seen by Provider: 01/07/20 09:58 Mode of Arrival: Medic Information source: Patient, Emergency Med Personnel Notes: This 49-year-old male patient with a history of childhood asthma presents to the emergency department today with complaints of shortness of breath. EMS states that the patient was wheezing on arrival so he was given x1 albuterol breathing treatment in route here which responded well per EMS. Patient smokes daily. Patient adds that he has had sick contacts at work with people who have also had URI like symptoms. Patient denies any recent travel. TRAVEL OUTSIDE OF THE [place] IN LAST 30 DAYS: No - Related Data Allergies/Adverse Reactions: Penicillins Allergy (Verified 01/07/20 09:48) Past Medical History - General Information source: Patient - Social History Smoking Status: Current Every Day Smoker Cigarette use (# per day): Yes Frequency of alcohol use: None Drug Abuse: None Occupation: [employer] Family History: CAD, CVA, Hyperlipidemia, Hypertension, Malignancy Patient has suicidal ideation: No Patient has homicidal ideation: No Pulmonary Medical History: Reports: Hx Asthma - as child Surgical Hx: Negative - Immunizations Immunizations up to date: Yes Hx Diphtheria, Pertussis, Tetanus Vaccination: Yes - 02/19/2018 Review of Systems - Review of Systems Constitutional: No symptoms reported EENT: No symptoms reported Cardiovascular: No symptoms reported Respiratory: See HPI, Short of breath, Wheezing Gastrointestinal: No symptoms reported Genitourinary: No symptoms reported Male Genitourinary: No symptoms reported Musculoskeletal: No symptoms reported Skin: No symptoms reported Hematologic/Lymphatic: No symptoms reported Neurological/Psychological: No symptoms reported -: Yes All other systems reviewed and negative Physical Exam - Vital signs Vitals: Temp Resp BP Pulse Ox 97.9 F 18 193/143 H 98 01/07/20 09:37 01/07/20 09:37 01/07/20 09:37 01/07/20 09:37 - Notes Notes: Physical Exam: General: Alert, appears well. HEENT: Normocephalic. Atraumatic. PERRL. Extraocular movements intact. Oropharynx clear. Neck: Supple. Non-tender. Respiratory: Mild respiratory distress. Tachypneic. Dyspneic. Wheezing bilaterally. Cardiovascular: Regular rate and rhythm. Abdominal: Normal Inspection. Non-tender. No distension. Normal Bowel Sounds. Back: No gross abnormalities. Extremities: Moves all four extremities. Upper extremities: Normal inspection. Normal ROM. Lower extremities: Normal inspection. No edema. Normal ROM. Neurological: Normal cognition. AAOx4. Normal speech. Psychological: Normal affect. Normal Mood. Skin: Warm. Dry. Normal color. Course - Re-evaluation Re-evalutation: 01/07/20 18:28 Patient is a 49-year-old male who comes in with wheezing. Resolved after nebulizer treatments, Solu-Medrol, and magnesium. Ambulated and maintain oxygen saturation above 95%. Atelectasis on chest x-ray. Will be started on azithromycin to cover for pneumonia. He is to take amlodipine as prescribed. Follow-up with PMD and return if any worsening or concerning symptoms. Unders tands agrees with plan. Stable for discharge. - Vital Signs Vital signs: Temp Pulse Resp BP Pulse Ox 97.9 F 17 175/108 H 96 01/07/20 09:37 01/07/20 15:01 01/07/20 15:01 01/07/20 15:01 - Laboratory Result Diagrams: 01/07/20 10:00 01/07/20 10:00 Laboratory results interpreted by me: 01/07/20 01/07/20 01/07/20 10:00 10:00 10:22 Seg Neutrophils % 81.1 H Chloride 110 H Glucose 132 H AST 79 H ALT 134 H Urine Protein 100 H Urine Glucose (UA) 50 H Urine Blood SMALL H Urine Urobilinogen 2.0 H - Diagnostic Test Radiology reviewed: Reports reviewed Critical Care Note - Critical Care Note Total time excluding time spent on procedures (mins): 35 - Evaluation and management of trouble breathing, multiple re-evaluations, counseling of patient Discharge - Discharge Clinical Impression: Asthma exacerbation Qualifiers: Asthma severity: moderate Asthma persistence: persistent Qualified Code(s): J45.41 - Moderate persistent asthma with (acute) exacerbation Hypertension Qualifiers: Hypertension type: essential hypertension Qualified Code(s): I10 - Essential (primary) hypertension Condition: Stable Disposition: HOME, SELF-CARE Instructions: Asthma ([facility]), High Blood Pressure, Requiring Treatment ([facility]) Prescriptions: Prednisone [Deltasone 20 mg Tablet] 3 tab PO DAILY 4 Days #12 tablet Amlodipine Besylate [Norvasc 5 mg Tablet] 5 mg PO DAILY #30 tablet Albuterol Sulfate [Proair HFA Inhalation Aerosol 8.5 gm MDI] 2 puff IH Q4H PRN #1 mdi PRN Reason: Azithromycin [Zithromax 250 mg Tablet] 250 mg PO ASDIR PRN #6 tablet PRN Reason: Forms: Smoking Cessation Education, Return to School, Return to Work, Elevated Blood Pressure I personally performed the services described in the documentation, reviewed and edited the documentation which was dictated to the scribe in my presence, and it accurately records my words and actions.
== END 2020-01-07 15:37 | disposition home or self-care (01) ==
LOC: ER 09:28
DX: J45.41 Moderate persistent asthma with (acute) exacerbation (principal); J98.11 Atelectasis; I10 Essential (primary) hypertension; R06.02 Shortness of breath; F17.210 Nicotine dependence, cigarettes, uncomplicated; Z88.0 Allergy status to penicillin
CPT/HCPCS: 93005; 94640; 99291; 96375; 96365; 96366; 36415; 87040; 83605; 85025; 80053; 81001; 84484; 82803; 71045; 93010; J2930; J3475; J3490; J7620

== ENCOUNTER 2020-05-07 15:20 | Emergency (ER) | payer MEDICAID ==
[2020-05-07 16:18] LABS: ABSOLUTE EOSINOPHILS # (AUTO) 0.1 10^3/uL (0.0-0.6); ABSOLUTE MONOCYTES (AUTO) 0.5 10^3/uL (0.1-1.4); BASOPHILS % (AUTO) 0.6 % (0-2); EOSINOPHILS % (AUTO) 1.6 % (0-6); HEMATOCRIT 43.7 % (37.9-51.0); HEMOGLOBIN 14.4 g/dL (13.5-17.0); LYMPHOCYTES % (AUTO) 35.6 % (13-45); MEAN CORPUSCULAR HEMOGLOBIN 28.6 pg (27.0-33.4); MEAN CORPUSCULAR HGB CONC 33.1 g/dL (32.0-36.0); MEAN CORPUSCULAR VOLUME 87 fl (80-97); MONOCYTES % (AUTO) 8.9 % (3-13); PLATELET COUNT 201 10^3/uL (150-450); RED BLOOD COUNT 5.04 10^6/uL (4.35-5.55); RED CELL DISTRIBUTION WIDTH 12.8 % (11.5-14.0); SEGMENTED NEUTROPHILS % (AUTO) 53.3 % (42-78); TOTAL CELLS COUNTED % (AUTO) 100 %; WHITE BLOOD COUNT 5.6 10^3/uL (4.0-10.5)
[2020-05-07 16:31] LABS: ALBUMIN 4.4 g/dL (3.5-5.0); ALKALINE PHOSPHATASE 70 U/L (38-126); ANION GAP 5 (5-19); ASPARTATE AMINO TRANSFERASE 49 U/L (17-59); BILIRUBIN,TOTAL 1.1 mg/dL (0.2-1.3); BLOOD UREA NITROGEN 18 mg/dL (7-20); CALCIUM 9.6 mg/dL (8.4-10.2); CARBON DIOXIDE 29 mmol/L (22-30); CHLORIDE 108 mmol/L (98-107); GLUCOSE 98 mg/dL (75-110); POTASSIUM 4.2 mmol/L (3.6-5.0); TOTAL PROTEIN 7.7 g/dL (6.3-8.2)
--- NOTE | 2020-05-07 16:45 | ER Document Report ---
ED GI/ - General Chief Complaint: Abdominal Pain Stated Complaint: VOMITING,DIARRHEA,BACK PAIN Time Seen by Provider: 05/07/20 16:12 Notes: CHIEF COMPLAINT: Abdominal pain, nausea, fever HPI: 49-year-old male presenting to the emergency department complaining of mild left lower quadrant abdominal pain that began yesterday with some nausea and also a subjective fever. Patient had one episode of vomiting yesterday no vomiting today. 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 No cough chest pain shortness of breath ROS: See HPI - all other systems were reviewed and are otherwise negative Constitutional: Positive subjective fever Eyes: no drainage, no blurred vision ENT: no runny nose, no sore throat Cardiovascular: no chest pain Resp: no SOB, no cough GI: Positive vomiting, no diarrhea, positive abdominal pain : no dysuria Integumentary: no rash Allergy: no hives Musculoskeletal: no extremity pain or swelling Neurological: no numbness/tingling, no weakness MEDICATIONS: I agree with the patient medications as charted by the RN. ALLERGIES: I agree with the allergies as charted by the RN. PAST MEDICAL HISTORY/PAST SURGICAL HISTORY: Reviewed and agree as charted by RN. SOCIAL HISTORY: Reviewed and agree as charted by RN. FAMILY HISTORY: No significant familial comorbid conditions directly related to patient complaint EXAM: Reviewed vital signs as charted by RN. CONSTITUTIONAL: Alert and oriented and responds appropriately to questions. Well-appearing; well-nourished HEAD: Normocephalic; atraumatic EYES: PERRL; Conjunctivae clear, sclerae non-icteric ENT: normal nose; no rhinorrhea; moist mucous membranes; pharynx without lesions noted, no uvula edema or deviation, no tonsillar hypertrophy, phonation normal NECK: Supple without meningismus; non-tender; no cervical lymphadenopathy, no masses CARD: RRR; no murmurs, no clicks, no rubs, no gallops; symmetric distal pulses RESP: Normal chest excursion without splinting or tachypnea; breath sounds clear and equal bilaterally; no wheezes, no rhonchi, no rales, pulse oximetry 98% on room air not hypoxic ABD/GI: Normal bowel sounds; non-distended; soft, mild tenderness in the left lower quadrant on palpation, no rebound, no guarding; no palpable organomegaly or masses. BACK: The back appears normal and is non-tender to palpation, there is no CVA tenderness EXT: Normal ROM in all joints; non-tender to palpation; no cyanosis, no effusions, no edema SKIN: Normal color for age and race; warm; dry; good turgor; no acute lesions noted NEURO: Moves all extremities equally; Motor and sensory function intact PSYCH: The patient's mood and manner are appropriate. Grooming and personal hygiene are appropriate. MDM: 49-year-old male abdominal pain subjective fever with one episode of vomiting yesterday. Concern for possible diverticulitis. Will obtain screening labs and imaging studies. Patient also wishes COVID testing. TRAVEL OUTSIDE OF THE [place] IN LAST 30 DAYS: No - Related Data Allergies/Adverse Reactions: Penicillins Allergy (Verified 01/07/20 09:48) Home Medications: BP meds Past Medical History - Social History Smoking Status: Current Every Day Smoker Frequency of alcohol use: None Drug Abuse: None Family History: CAD, CVA, Hyperlipidemia, Hypertension, Malignancy Patient has homicidal ideation: No - Past Medical History Cardiac Medical History: Reports: Hx Hypertension Pulmonary Medical History: Reports: Hx Asthma - as child Renal/ Medical History: Denies: Hx Peritoneal Dialysis - Immunizations Immunizations up to date: Yes Hx Diphtheria, Pertussis, Tetanus Vaccination: Yes - 02/19/2018 Physical Exam - Vital signs Vitals: Temp Pulse Resp BP Pulse Ox 98.5 F 95 20 184/102 H 96 05/07/20 15:41 05/07/20 15:41 05/07/20 15:41 05/07/20 15:41 05/07/20 15:41 Course - Re-evaluation Re-evalutation: 05/07/20 17:[address] imaging did not show acute findings. This may be a viral etiology. Will treat with Rehan Glynn. Patient will be a person under investigation given his concerns about COVID, follow-up PCP he will self quarantine at home - Vital Signs Vital signs: Temp Pulse Resp BP Pulse Ox 98.5 F 95 20 184/102 H 96 05/07/20 15:41 05/07/20 15:41 05/07/20 15:41 05/07/20 15:41 05/07/20 15:41 - Laboratory Result Diagrams: 05/07/20 16:00 05/07/20 16:00 Laboratory results interpreted by me: 05/07/20 05/07/20 16:00 16:50 Chloride 108 H ALT 67 H Urine Protein 100 H Urine Blood SMALL H Urine Urobilinogen 2.0 H Discharge - Discharge Clinical Impression: Abdominal pain, left lower quadrant, Person under investigation for COVID-19 Condition: Stable Disposition: HOME, SELF-CARE Additional Instructions: Your lab work and imaging studies today did not show acute findings to explain a definitive cause for your symptoms. This may be a viral etiology. Take the Bentyl for abdominal pain or spasm take Zofran for nausea or vomiting. You were concerned about COVID-19, a test has been sent, you are considered a person under investigation at this time self quarantine at home until you have a negative test result. Return to the emergency department if you have worsening abdominal pain onset of fever greater than 101 or worsening symptoms Prescriptions: Dicyclomine HCl [Bentyl 20 mg Tablet] 20 mg PO Q6H PRN #20 tablet PRN Reason: Ondansetron [Zofran Odt 4 mg Tablet] 1 - 2 tab PO Q4H PRN #15 tab.rapdis PRN Reason: For Nausea/Vomiting Referrals: BLANE HUYNH MD [ACTIVE STAFF] - Follow up as needed
[2020-05-07 17:30] LABS: APPEARANCE,URINE CLEAR; BILIRUBIN,URINE NEGATIVE (NEGATIVE); COLOR,URINE YELLOW; GLUCOSE, URINE NEGATIVE (NEGATIVE); KETONES,URINE NEGATIVE (NEGATIVE); LEUKOCYTE ESTERASE,URINE NEGATIVE (NEGATIVE); NITRITE,URINE NEGATIVE (NEGATIVE); PROTEIN,URINE 100 mg/dL (NEGATIVE); URINE SPECIFIC GRAVITY 1.025
--- NOTE | 2020-05-07 17:40 | RADIOLOGY REPORT (SQ) ---
EXAM DESCRIPTION: CT ABD/PELVIS WITH IV ONLY IMAGES COMPLETED DATE/TIME: 05/07/2020 5:26 pm REASON FOR STUDY: LLQ pain COMPARISON: None. TECHNIQUE: CT scan of the abdomen and pelvis performed using helical scanning technique with dynamic intravenous contrast injection. No oral contrast. Images reviewed with lung, soft tissue, and bone windows. Reconstructed coronal and sagittal MPR images reviewed. Delayed images for evaluation of the urinary system also acquired. All images stored on PACS. All CT scanners at this facility use dose modulation, iterative reconstruction, and/or weight based d osing when appropriate to reduce radiation dose to as low as reasonably achievable (ALARA). [facility]: Dose Right [facility]: CareDose [facility]: Dose Right [facility]: Teradose 4D [facility]: SafeRent CONTRAST TYPE AND DOSE: contrast/concentration: Isovue 350.00 mmol/ml; Total Contrast Delivered: 99. 9 ml; Total Saline Delivered: 72.0 ml RENAL FUNCTION: GFR > 60. RADIATION DOSE: CT Rad equipment meets quality standard of care and radiation dose reduction techniq ues were employed. CTDIvol: 8.7 - 12.5 mGy. DLP: 1235 mGy-cm.. LIMITATIONS: None. FINDINGS: LOWER CHEST: No significant findings. No nodules or infiltrates. LIVER: Normal size. No masses. No dilated ducts. SPLEEN: Normal size. No focal lesions. PANCREAS: No masses. No significant calcifications. No adjacent inflammation or peripancreatic fluid collections. Pancreatic duct not dilated. GALLBLADDER: No identified stones by CT criteria. No inflammatory changes to suggest cholecystitis. ADRENAL GLANDS: No significant masses or asymmetry. RIGHT KIDNEY AND URETER: No solid masses. No significant calcifications. No hydronephrosis or hyd roureter. LEFT KIDNEY AND URETER: No solid masses. No significant calcifications. No hydronephrosis or hydr oureter. AORTA AND VESSELS: No aneurysm. No dissection. Renal arteries, SMA, celiac without stenosis. RETROPERITONEUM: No retroperitoneal adenopathy, hemorrhage or masses. BOWEL AND PERITONEAL CAVITY: No masses or inflammatory changes. No free fluid or peritoneal masses. APPENDIX: Normal. PELVIS: No mass. No free fluid. Normal bladder. ABDOMINAL WALL: No masses. No hernias. BONES: No significant or acute findings. OTHER: No other significant finding. IMPRESSION: NO SIGNIFICANT OR ACUTE FINDING IN THE ABDOMEN OR PELVIS ON CT SCAN WITH IV CONTRAST. TECHNICAL DOCUMENTATION: JOB ID: [id number] Quality ID # [id number]: Final reports with documentation of one or more dose reduction techniques (e.g., Au tomated exposure control, adjustment of the mA and/or kV according to patient size, use of iterative reconstruction technique) 2010 [employer]- All Rights Reserved Reading location - IP/workstation name: [email or web address]
[2020-05-07 18:22] VITALS: BP 178/99
== END 2020-05-07 18:22 | disposition home or self-care (01) ==
LOC: ER 15:20
DX: R10.32 Left lower quadrant pain (principal); R11.0 Nausea; R50.9 Fever, unspecified; F17.200 Nicotine dependence, unspecified, uncomplicated; I10 Essential (primary) hypertension; Z20.828 Contact with and (suspected) exposure to other viral communicable diseases; Z88.0 Allergy status to penicillin
CPT/HCPCS: 99284; 36415; 85025; 87635; 80053; 81001; 74177; C9803

== ENCOUNTER 2020-08-09 07:49 | Emergency (ER) | payer MEDICAID ==
[2020-08-09 10:06] LABS: APPEARANCE,URINE CLEAR; BILIRUBIN,URINE NEGATIVE (NEGATIVE); COLOR,URINE YELLOW; GLUCOSE, URINE NEGATIVE (NEGATIVE); KETONES,URINE NEGATIVE (NEGATIVE); LEUKOCYTE ESTERASE,URINE NEGATIVE (NEGATIVE); NITRITE,URINE NEGATIVE (NEGATIVE); PROTEIN,URINE 30 mg/dL (NEGATIVE); URINE SPECIFIC GRAVITY 1.017; UROBILINOGEN,URINE NEGATIVE mg/dL (<2.0)
--- NOTE | 2020-08-09 10:13 | ER Document Report ---
ED General - General Chief Complaint: Shortness Of Breath Stated Complaint: HEADACHE,VOMITING Time Seen by Provider: 08/09/20 09:41 Notes: CHIEF COMPLAINT: Vomiting and diarrhea HPI: 50-year-old male presenting with vomiting and diarrhea 2-3 episodes of each to began yesterday. Patient's son has been sick with a multitude of symptoms for the last for 5 days. No fevers no chills. Patient states that he does take blood pressure medication took a dose this morning states that he needs to follow-up with his PCP to get more refills on his medication because he does not remember exactly what he is on. No chest pain shortness of breath cough cold symptoms. ROS: See HPI - all other systems were reviewed and are otherwise negative Constitutional: no fever Eyes: no drainage, no blurred vision ENT: no runny nose, no sore throat Cardiovascular: no chest pain Resp: no SOB, no cough GI: + vomiting, + diarrhea, no abdominal pain : no dysuria Integumentary: no rash Allergy: no hives Musculoskeletal: no extremity pain or swelling Neurological: no numbness/tingling, no weakness MEDICATIONS: I agree with the patient medications as charted by the RN. ALLERGIES: I agree with the allergies as charted by the RN. PAST MEDICAL HISTORY/PAST SURGICAL HISTORY: Reviewed and agree as charted by RN. SOCIAL HISTORY: Reviewed and agree as charted by RN. FAMILY HISTORY: No significant familial comorbid conditions directly related to patient complaint EXAM: Reviewed vital signs as charted by RN. CONSTITUTIONAL: Alert and oriented and responds appropriately to questions. Well-appearing; well-nourished HEAD: Normocephalic; atraumatic EYES: PERRL; Conjunctivae clear, sclerae non-icteric ENT: normal nose; no rhinorrhea; moist mucous membranes; pharynx without lesions noted, no uvula edema or deviation, no tonsillar hypertrophy, phonation normal NECK: Supple without meningismus; non-tender; no cervical lymphadenopathy, no masses CARD: RRR; no murmurs, no clicks, no rubs, no gallops; symmetric distal pulses RESP: Normal chest excursion without splinting or tachypnea; breath sounds clear and equal bilaterally; no wheezes, no rhonchi, no rales, pulse oximetry 98% on room air not hypoxic ABD/GI: Normal bowel sounds; non-distended; soft, non-tender, no rebound, no guarding; no palpable organomegaly or masses. BACK: The back appears normal and is non-tender to palpation, there is no CVA tenderness EXT: Normal ROM in all joints; non-tender to palpation; no cyanosis, no effusions, no edema SKIN: Normal color for age and race; warm; dry; good turgor; no acute lesions noted NEURO: Moves all extremities equally; Motor and sensory function intact PSYCH: The patient's mood and manner are appropriate. Grooming and personal hygiene are appropriate. MDM: 50-year-old male presenting for vomiting and diarrhea that began yesterday. No chest pain no shortness of breath to suggest ACS. He has no abdominal pain on palpation. Will give Zofran for nausea. Flu testing sent by nursing. Patient refusing COVID test at this time. States he had 1 in May. Does not want to miss work and so does not want a COVID test. Patient's son is being tested for COVID. He will be a positive contact pending that test result TRAVEL OUTSIDE OF THE [place] IN LAST 30 DAYS: No - Related Data Allergies/Adverse Reactions: Penicillins Allergy (Verified 01/07/20 09:48) Past Medical History - Social History Smoking Status: Unknown if Ever Smoked Chew tobacco use (# tins/day): No Frequency of alcohol use: None Drug Abuse: None Family History: CAD, CVA, Hyperlipidemia, Hypertension, Malignancy Patient has homicidal ideation: No - Past Medical History Cardiac Medical History: Reports: Hx Hypertension Pulmonary Medical History: Reports: Hx Asthma - as child Renal/ Medical History: Denies: Hx Peritoneal Dialysis - Immunizations Immunizations up to date: Yes Hx Diphtheria, Pertussis, Tetanus Vaccination: Yes - 02/19/2018 Physical Exam - Vital signs Vitals: Temp Pulse Resp BP Pulse Ox 97.8 F 85 16 178/110 H 100 08/09/20 07:52 08/09/20 07:52 08/09/20 07:52 08/09/20 07:52 08/09/20 07:52 Course - Re-evaluation Re-evalutation: 08/09/20 10:42 Influenza test is negative. Patient was mildly hypertensive here states he did take his blood pressure medication this morning he can call his primary care provider for refills on his blood pressure medication as he does not know his medicine or his dose. Patient will be prescribed Zofran for nausea. He has declined a COVID test today. - Vital Signs Vital signs: Temp Pulse Resp BP Pulse Ox 97.8 F 85 16 178/110 H 100 08/09/20 07:52 08/09/20 07:52 08/09/20 07:52 08/09/20 07:52 08/09/20 07:52 - Laboratory Laboratory results interpreted by me: 08/09/20 09:45 Urine Protein 30 H Urine Blood SMALL H Discharge - Discharge Clinical Impression: Vomiting Qualifiers: Vomiting type: unspecified Vomiting Intractability: non-intractable Nausea presence: with nausea Qualified Code(s): R11.2 - Nausea with vomiting, unspecified Hypertension Qualifiers: Hypertension type: essential hypertension Qualified Code(s): I10 - Essential (primary) hypertension Condition: Stable Disposition: HOME, SELF-CARE Additional Instructions: Take Zofran for any nausea or vomiting. You have declined COVID testing today. If you have worsening symptoms, abdominal pain or fever return for reevaluation. Call your primary care provider for reevaluation also for refills of your blood pressure medication as your blood pressure today was slightly elevated Prescriptions: Ondansetron [Zofran Odt 4 mg Tablet] 1 - 2 tab PO Q4H PRN #15 tab.rapdis PRN Reason: For Nausea/Vomiting
[2020-08-09 10:22] LABS: A TYPE INFLUENZA AG NEGATIVE (NEGATIVE); B INFLUENZA AG NEGATIVE (NEGATIVE)
[2020-08-09 11:23] VITALS: BP 164/116
== END 2020-08-09 11:24 | disposition home or self-care (01) ==
LOC: ER 07:49
DX: R11.2 Nausea with vomiting, unspecified (principal); R19.7 Diarrhea, unspecified; I10 Essential (primary) hypertension
CPT/HCPCS: 81001; 87804; 99283

== ENCOUNTER 2020-09-27 13:17 | Inpatient (IN) | payer MEDICAID ==
--- NOTE | 2020-09-27 13:46 | ER Document Report ---
ED Medical Screen (RME) - General Chief Complaint: Chest Pain Stated Complaint: CHEST PAIN Time Seen by Provider: 09/27/20 13:36 TRAVEL OUTSIDE OF THE [place] IN LAST 30 DAYS: No - HPI Notes: 09/27/20 13:42 50-year-old male with a history of hypertension and asthma presents to the emergency room today with substernal chest pain that started approximately 40 minutes ago, states he had 10 minutes of feeling chest tightness and pressure and then he started to feel dizziness. Patient states the pain radiates down his right arm with numbness and tingling. patient states it feels like he was "hit with a hammer" on his chest. Reports pain is 4 out of 5. denies any cardiac history. His blood pressure in triage was 186/114. Patient smokes roughly 2 packs a day for the last 25 years, he is adopted he does not know his biological family medical history. Does not have a primary care provider. Denies any nausea vomiting, abdominal pain, headache, blurred vision double vision or loss of vision. He did take his blood pressure medication this morning. Reports that he is not having any active chest pain at the moment. does not take a baby asa I have greeted and performed a rapid initial assessment of this patient. A comprehensive ED assessment and evaluation of the patient, analysis of test results and completion of the medical decision making process will be conducted by additional ED providers. PHYSICAL EXAMINATION: GENERAL: Well-appearing, well-nourished and in no acute distress. HEAD: Atraumatic, normocephalic. EYES: Pupils equal round extraocular movements intact, conjunctiva are normal. NECK: Normal range of motion CV: tachycardia. Reproducible chest pain on palpation LUNGS: No respiratory distress Musculoskeletal: Normal range of motion NEUROLOGICAL: Normal speech, normal gait. SKIN: Warm, Dry, normal turgor, no rashes or lesions noted. - Related Data Allergies/Adverse Reactions: Penicillins Allergy (Verified 09/27/20 13:40) Past Medical History - Past Medical History Cardiac Medical History: Reports: Hx Hypertension Pulmonary Medical History: Reports: Hx Asthma - as child Renal/ Medical History: Denies: Hx Peritoneal Dialysis - Immunizations Immunizations up to date: Yes Hx Diphtheria, Pertussis, Tetanus Vaccination: Yes - 02/19/2018 Physical Exam - Vital signs Vitals: Temp Pulse Resp BP Pulse Ox 98.1 F 112 H 18 186/114 H 97 09/27/20 13:36 09/27/20 13:36 09/27/20 13:36 09/27/20 13:36 09/27/20 13:36 Course - Vital Signs Vital signs: Temp Pulse Resp BP Pulse Ox 98.1 F 112 H 18 186/114 H 97 09/27/20 13:36 09/27/20 13:36 09/27/20 13:36 09/27/20 13:36 09/27/20 13:36
--- NOTE | 2020-09-27 14:18 | RADIOLOGY REPORT (SQ) ---
EXAM DESCRIPTION: CHEST SINGLE VIEW IMAGES COMPLETED DATE/TIME: 09/27/2020 2:01 pm REASON FOR STUDY: cp x 40 minutes ago COMPARISON: 01/07/2020 EXAM PARAMETERS: NUMBER OF VIEWS: One view. TECHNIQUE: Single frontal radiographic view of the chest acquired. RADIATION DOSE: NA LIMITATIONS: None. FINDINGS: LUNGS AND PLEURA: No opacities, masses or pneumothorax. No pleural effusion. MEDIASTINUM AND HILAR STRUCTURES: No masses. Contour normal. HEART AND VASCULAR STRUCTURES: Cardiomegaly without central vascular congestion. BONES: No acute findings. HARDWARE: None in the chest. OTHER: No other significant finding. IMPRESSION: Cardiomegaly without central vascular congestion. TECHNICAL DOCUMENTATION: JOB ID: [id number] 2010 [employer]- All Rights Reserved Reading location - IP/workstation name: [email or web address]
[2020-09-27 14:24] LABS: ABSOLUTE LYMPHOCYTES (AUTO) 1.8 10^3/uL (0.5-4.7); ABSOLUTE MONOCYTES (AUTO) 0.4 10^3/uL (0.1-1.4); BASOPHILS % (AUTO) 0.3 % (0-2); EOSINOPHILS % (AUTO) 0.5 % (0-6); HEMATOCRIT 43.4 % (37.9-51.0); HEMOGLOBIN 14.2 g/dL (13.5-17.0); LYMPHOCYTES % (AUTO) 24.8 % (13-45); MEAN CORPUSCULAR HEMOGLOBIN 27.9 pg (27.0-33.4); MEAN CORPUSCULAR HGB CONC 32.8 g/dL (32.0-36.0); MEAN CORPUSCULAR VOLUME 85 fl (80-97); MONOCYTES % (AUTO) 5.1 % (3-13); PLATELET COUNT 185 10^3/uL (150-450); RED BLOOD COUNT 5.09 10^6/uL (4.35-5.55); RED CELL DISTRIBUTION WIDTH 12.7 % (11.5-14.0); SEGMENTED NEUTROPHILS % (AUTO) 69.3 % (42-78); TOTAL CELLS COUNTED % (AUTO) 100 %; WHITE BLOOD COUNT 7.2 10^3/uL (4.0-10.5)
[2020-09-27 14:42] LABS: ALBUMIN 4.6 g/dL (3.5-5.0); ALKALINE PHOSPHATASE 70 U/L (38-126); ANION GAP 11 (5-19); ASPARTATE AMINO TRANSFERASE 79 U/L (17-59); BILIRUBIN,TOTAL 1.1 mg/dL (0.2-1.3); BLOOD UREA NITROGEN 26 mg/dL (7-20); CALCIUM 9.4 mg/dL (8.4-10.2); CARBON DIOXIDE 24 mmol/L (22-30); CHLORIDE 105 mmol/L (98-107); CREATINE KINASE 809 U/L (55-170); GLUCOSE 113 mg/dL (75-110); POTASSIUM 4.1 mmol/L (3.6-5.0); TOTAL PROTEIN 7.6 g/dL (6.3-8.2)
[2020-09-27 14:54] LABS: CREATINE KINASE MB 10.7 ng/mL (<4.55)
[2020-09-27] MEDS ORDERED: LABETALOL HCL INJ 20 MG/4 ML DISP.SYRIN IV ONE ×2 (15:17→16:41)
--- NOTE | 2020-09-27 15:23 | ER Document Report ---
ED General - General Chief Complaint: Chest Pain > 30 Stated Complaint: CHEST PAIN Time Seen by Provider: 09/27/20 13:36 TRAVEL OUTSIDE OF THE [place] IN LAST 30 DAYS: No - HPI Notes: Chief complaint: Chest pain History of present illness: 50-year-old male presents for evaluation of chest pain. Patient was seen here once previously with similar symptoms a number of months ago but never followed up with cardiology. His pain was felt to be noncardiac at that time. He had an episode today which lasted about 40 minutes described as a pressure sensation in the right side of his chest radiating into his right upper extremity. This was not associated with any dyspnea, nausea, vomiting or diaphoresis. Pain resolved spontaneously upon arrival here. This was nonexertional. He currently has no pain. Patient denies any known history of thromboembolic disease. He has had no recent surgery or travel. No recent trauma. No hemoptysis. Patient has a history of hypertension and takes lisinopril 20/HCTZ 12.5 mg daily. He says he takes the medicine "most of the time". He smokes 1-1/2 to 2 packs of cigarettes per day. He has no history of diabetes mellitus or hyperlipidemia. States he is adopted and does not know his family history. - Related Data Allergies/Adverse Reactions: Penicillins Allergy (Verified 09/27/20 13:40) Past Medical History - General Information source: Patient, Relative, [facility], [facility] Records - Social History Smoking Status: Current Every Day Smoker Frequency of alcohol use: Rare Drug Abuse: None Family History: CAD, CVA, Hyperlipidemia, Hypertension, Malignancy - Past Medical History Cardiac Medical History: Reports: Hx Hypertension Pulmonary Medical History: Reports: Hx Asthma - as child Renal/ Medical History: Denies: Hx Peritoneal Dialysis - Immunizations Immunizations up to date: Yes Hx Diphtheria, Pertussis, Tetanus Vaccination: Yes - 02/19/2018 Review of Systems - Review of Systems Notes: Constitutional: Negative for fever. HENT: Negative for sore throat. Eyes: Negative for visual changes. Cardiovascular: As per HPI. Respiratory: Negative for shortness of breath. Gastrointestinal: Negative for abdominal pain, vomiting or diarrhea. Genitourinary: Negative for dysuria. Musculoskeletal: Negative for back pain. Skin: Negative for rash. Neurological: Negative for headaches, weakness or numbness. 10 point ROS negative except as marked above and in HPI. Physical Exam - Vital signs Vitals: Temp Pulse Resp BP Pulse Ox 98.1 F 112 H 18 186/114 H 97 09/27/20 13:36 09/27/20 13:36 09/27/20 13:36 09/27/20 13:36 09/27/20 13:36 - Notes Notes: GENERAL: Middle-aged well-developed well-nourished male appearing in no acute distress. SKIN: Good turgor no rashes. HEAD: Normocephalic atraumatic. EYES: PERRLA. EOMI. Conjunctivae and sclerae clear. EARS: CANALS AND TMS CLEAR. NOSE: CLEAR. MOUTH: Moist mucosa. Good dentition. No stridor or edema. No drooling. NECK: Supple. No masses or thyromegaly. No adenopathy. Carotids 2+ without bruits. No JVD. BACK: Symmetrical without tenderness. CHEST: Respirations unlabored. Breath sounds clear and symmetrical. HEART: Regular rhythm. No murmur or rub. S4 gallop present. ABDOMEN: Soft nontender without masses, organomegaly or rebound. Bowel sounds normally active. No bruits. GENITALIA: Deferred. EXTREMITIES: No edema. No calf tenderness. Cap refill less than 1.5 seconds. Dorsalis pedis and posterior tibial pulses 3+ and symmetrical. NEUROLOGICAL: GCS 15. Alert and oriented x3. Normal gait. Fluent speech. Cranial nerves II through XII intact. Sensorimotor and cerebellar normal. Normal tone. PSYCHIATRIC: Appropriate affect. Course - Re-evaluation Re-evalutation: 09/27/20 18:25 Patient has minor elevation of his troponin level. His EKG did not show any acute ST changes. He has had no further pain since arrival here. His blood pressure is very uncontrolled. He is required several doses of IV labetalol and IV Lasix to get his blood pressure down to current level of 165/112. Findings were discussed with credit reporter on-call Dr. Morocho who recommends admission to the medicine service for regulation of blood pressure and he will see the patient for consultation. He thinks that mild elevation of troponin is attributable to hypertensive crisis. Case was discussed with Dr. [id number] hrs. and he accepts patient for admission and requested I contact who has been paged. He has not yet returned page. 09/27/20 18:38 Dr. Owusu refused admission. Accepted by Dr. Albrecht. - Vital Signs Vital signs: Temp Pulse Resp BP Pulse Ox 98.1 F 112 H 15 167/112 H 97 09/27/20 13:36 09/27/20 13:36 09/27/20 18:21 09/27/20 18:21 09/27/20 18:21 - Laboratory Result Diagrams: 09/27/20 13:48 09/27/20 13:48 Laboratory results interpreted by me: 09/27/20 09/27/20 13:48 13:48 BUN 26 H Creatinine 1.35 H Est GFR (MDRD) Non-Af 56 L Glucose 113 H AST 79 H ALT 104 H Creatine Kinase 809 H CK-MB (CK-2) 10.70 H - Diagnostic Test Radiology reviewed: Image reviewed, Reports reviewed Radiology results interpreted by me: 09/27/20 18:39 Chest X-Ray 09/27/20 13:40 IMPRESSION: Cardiomegaly without central vascular congestion. - EKG Interpretation by Me Additional EKG results interpreted by me: 09/27/20 18:39 Twelve-lead EKG reviewed by me contemporaneously: 1324 hrs. Indication for study: Chest pain and hypertension Rhythm: Sinus tachycardia Rate: 118 Intervals: Normal QRS axis: +[address]/T wave changes: LVH with secondary repolarization changes Comparison with prior tracing: Minimally changed compared with prior study of 01/07/2020 Interpretation: LVH with secondary repolarization changes Critical Care Note - Critical Care Note Total time excluding time spent on procedures (mins): 65 - IV labetalol Discharge - Discharge Clinical Impression: Hypertensive emergency Chest pain Qualifiers: Chest pain type: unspecified Qualified Code(s): R07.9 - Chest pain, unspecified Condition: Good Disposition: ADMITTED INPATIENT Admitting Provider: Francoise Unit Admitted: Telemetry
[2020-09-27] MEDS ORDERED: FUROSEMIDE INJ/PF 20 MG/2 ML SDV IV ONE (16:41)
--- NOTE | 2020-09-27 17:51 | EKG REPORT ---
SEVERITY:- ABNORMAL ECG - SINUS TACHYCARDIA DARLENE, CONSIDER BIATRIAL ABNORMALITIES LEFT VENTRICULAR HYPERTROPHY ST ELEV, PROBABLE NORMAL EARLY REPOL PATTERN BORDERLINE PROLONGED QT INTERVAL : Confirmed by: Estuardo Madera MD 27-Sep-2020 17:50:32
[2020-09-27] MEDS ORDERED: NITROGLYCERIN 2% OINTMENT 1 GM PACKET TP ONE (18:04)
[2020-09-27] MEDS ORDERED: ACETAMINOPHEN 325 MG TABLET PO PRN (19:39)
[2020-09-27] MEDS ORDERED: MAG HYDROX/AL HYDROX/SIMETH SUSP 30 ML UDCUP PO PRN (19:39)
[2020-09-27] MEDS ORDERED: ALBUTEROL SULFATE 0.083% NEB 2.5 MG/3 ML AMPUL NEB PRN (19:39)
[2020-09-27] MEDS ORDERED: ONDANSETRON HCL INJ/PF 4 MG/2 ML SDV IV PRN (19:39)
[2020-09-27] MEDS ORDERED: NITROGLYCERIN/D5W 50 MG/250 ML RTUINJ IV PRN (19:51)
--- NOTE | 2020-09-27 20:19 | PDOC H&P ---
History of Present Illness Admission Date/PCP: 09/27/20 19:19 Patient complains of: Chest pain History of Present Illness: YELITZA SHEPHERD is a 50 year old male with history of hypertension, who presents to the hospital with complaints of acute onset chest pain which started earlier today. Describes the chest pain as substernal but with no particular alleviating or aggravating factors. Not worsened by exertion and not improved by rest. No particular radiation either. He also experienced a brief episode of blurred vision. He states he has been taking his high blood pressure medications twice a day but he has told his primary care doctor that he is not d oing anything for his blood pressure. In the emergency department, patient was found to be significantly hypertensive and started on IV treatments. His chest pain is currently resolved but he is still quite hypertensive with BP in the 180s systolic during my encounter. He also admits to significant orthopnea and PND. He denies any leg swelling. Always sleeps in an inclined position. Denies any cardiac history. Past Medical History Cardiac Medical History: Reports: Hypertension Pulmonary Medical History: Reports: Asthma - as child Past Surgical History Past Surgical History: Reports: None Social History Smoking Status: Current Every Day Smoker Frequency of Alcohol Use: Rare Hx Recreational Drug Use: No - Advance Directive Resuscitation Status: Full Code Family History Family History: Other - Patient informs me that he does not know his family history because he was given up for adoption Parental Family History Reviewed: Yes Children Family History Reviewed: Yes Sibling(s) Family History Reviewed.: Yes Medication/Allergy Home Medications: Clindamycin HCl 300 mg PO Q6H 7 Days capsule 09/10/16 Oxycodone HCl/Acetaminophen [Percocet 5-325 mg Tablet] 1 - 2 tab PO Q4H PRN #15 tablet 09/10/16 Hydrocodone Bit/Acetaminophen [Hydrocodon-Acetaminophen 5-325] 1 each PO Q4HP PRN #10 tablet 10/28/16 Sulfamethoxazole/Trimethoprim [Sulfamethoxazole-Tmp Ds Tablet] 2 each PO BID #30 tablet 10/28/16 Clindamycin HCl [Cleocin 300 mg Capsule] 300 mg PO TID #30 capsule 02/16/18 Amlodipine Besylate [Norvasc 5 mg Tablet] 5 mg PO DAILY #14 tablet 02/19/18 Cephalexin Monohydrate [Keflex 500 mg Capsule] 500 mg PO QID #20 capsule 02/19/18 Naproxen [Naprosyn] 500 mg PO BID #20 tablet 04/06/18 Amlodipine Besylate [Norvasc 5 mg Tablet] 5 mg PO DAILY #30 tablet 03/24/19 Amlodipine Besylate [Norvasc 5 mg Tablet] 5 mg PO DAILY #30 tablet 10/30/19 Promethazine HCl [Phenergan 25 mg Tablet] 1 - 2 tab PO Q6H PRN #15 tablet 10/30/19 Albuterol Sulfate [Proair HFA Inhalation Aerosol 8.5 gm MDI] 2 puff IH Q4H PRN #1 mdi 01/07/20 Amlodipine Besylate [Norvasc 5 mg Tablet] 5 mg PO DAILY #30 tablet 01/07/20 Azithromycin [Zithromax 250 mg Tablet] 250 mg PO ASDIR PRN #6 tablet 01/07/20 Prednisone [Deltasone 20 mg Tablet] 3 tab PO DAILY 4 Days #12 tablet 01/07/20 Dicyclomine HCl [Bentyl 20 mg Tablet] 20 mg PO Q6H PRN #20 tablet 05/07/20 Ondansetron [Zofran Odt 4 mg Tablet] 1 - 2 tab PO Q4H PRN #15 tab.rapdis 05/07/20 Ondansetron [Zofran Odt 4 mg Tablet] 1 - 2 tab PO Q4H PRN #15 tab.rapdis 1 Allergies/Adverse Reactions: Penicillins Allergy (Verified 09/27/20 13:40) Review of Systems Constitutional: ABSENT: chills, fatigue, fever(s) Eyes: PRESENT: visual disturbances Ears: ABSENT: hearing changes Nose, Mouth, and Throat: ABSENT: headache(s) Cardiovascular: PRESENT: chest pain, orthropnea. ABSENT: edema Respiratory: ABSENT: cough Gastrointestinal: ABSENT: abdominal pain, diarrhea, nausea, vomiting Genitourinary: ABSENT: dysuria Musculoskeletal: ABSENT: back pain Integumentary: ABSENT: diaphoresis Neurological: ABSENT: dizziness Psychiatric: ABSENT: anxiety Endocrine: ABSENT: polyuria Allergic/Immunologic: ABSENT: seasonal rhinorrhea Physical Exam Vital Signs: Temp Pulse Resp BP Pulse Ox 98.4 F 112 H 14 159/108 H 97 09/27/20 19:06 09/27/20 13:36 09/27/20 19:06 09/27/20 19:06 09/27/20 19:06 Intake & Output 09/26/20 09/27/20 09/28/20 06:59 06:59 06:59 Weight 101.3 kg General appearance: PRESENT: no acute distress, cooperative Head exam: PRESENT: normocephalic Eye exam: PRESENT: EOMI Neck exam: ABSENT: JVD Respiratory exam: PRESENT: clear to auscultation darren, unlabored. ABSENT: crackles, tachypnea, wheezes Cardiovascular exam: PRESENT: RRR, +S1, +S2. ABSENT: tachycardia GI/Abdominal exam: PRESENT: soft. ABSENT: rebound, rigid, tenderness Extremities exam: ABSENT: joint swelling, pedal edema, +1 edema, +2 edema Musculoskeletal exam: ABSENT: ambulatory Neurological exam: PRESENT: alert, awake, oriented to person, oriented to place, oriented to time, oriented to situation Psychiatric exam: ABSENT: agitated, anxious Focused psych exam: ABSENT: pressured speech Skin exam: ABSENT: jaundice Results Laboratory Results: 09/27/20 13:48 09/27/20 13:48 09/27/20 09/27/20 13:48 13:48 WBC 7.2 RBC 5.09 Hgb 14.2 Hct 43.4 MCV 85 MCH 27.9 MCHC 32.8 RDW 12.7 Plt Count 185 Seg Neutrophils % 69.3 Sodium 139.5 Potassium 4.1 Chloride 105 Carbon Dioxide 24 Anion Gap 11 BUN 26 H Creatinine 1.35 H Est GFR ( Amer) > 60 Glucose 113 H Calcium 9.4 Total Bilirubin 1.1 AST 79 H Alkaline Phosphatase 70 Total Protein 7.6 Albumin 4.6 09/27/20 09/27/20 09/27/20 13:48 13:48 16:15 Creatine Kinase 809 H CK-MB (CK-2) 10.70 H Troponin I 0.065 0.102 Impressions: Chest X-Ray 09/27/20 13:40 IMPRESSION: Cardiomegaly without central vascular congestion. Assessment and Plan - Diagnosis (1) Hypertensive emergency Is this a current diagnosis for this admission?: Yes Plan: Characterized by significant hypertension, chest pain, elevated troponin and elevated creatinine. Admit to IMCU. I will place patient on nitroglycerin drip and bring down his MAP gradually. We will also resume his lisinopril. Hold hydrochlorothiazide for now as he is getting Lasix. Monitor on telemetry. (2) Chronic CHF Qualifiers: Heart failure type: unspecified Qualified Code(s): I50.9 - Heart failure, unspecified Is this a current diagnosis for this admission?: Yes Plan: Received Lasix in the ER. He complains of orthopnea, PND. Chest x-ray is notable for mild cardiomegaly. I suspect he likely has chronic diastolic failure from uncontrolled hypertension. We will get an echocardiogram IV Lasix daily for now. (3) Chest pain Qualifiers: Chest pain type: unspecified Qualified Code(s): R07.9 - Chest pain, unspecified Is this a current diagnosis for this admission?: Yes Plan: Suspect secondary to type II TN from hypertensive emergency. EKG shows sinus tach with early repolarization changes associated with LVH. Troponin is wheezing to 0.1. We will continue to trend. Will give aspirin. (4) Transaminitis Is this a current diagnosis for this admission?: Yes Plan: Monitor - Time Time Spent with patient: 35 or more minutes Anticipated Discharge Disposition: Home, Self Care Anticipated Discharge Timeframe: within 72 hours
[2020-09-27] MEDS ORDERED: ASPIRIN 81 MG TABLET, CHEWABLE PO ONE (20:30)
[2020-09-27] MEDS ORDERED: ENOXAPARIN SODIUM INJ 40 MG/0.4 ML DISP.SYRIN SUBCUT SCH (20:30)
[2020-09-27] MEDS ORDERED: LISINOPRIL 10 MG TABLET PO ONE (20:30)
[2020-09-27] MEDS ORDERED: CARVEDILOL 6.25 MG TABLET PO ONE (23:22)
[2020-09-27] MEDS ORDERED: ENOXAPARIN SODIUM INJ 100 MG/1 ML DISP.SYRIN SUBCUT ONE (23:30)
[2020-09-28] MEDS ORDERED: ENOXAPARIN SODIUM INJ 60 MG/0.6 ML DISP.SYRIN SUBCUT ONE (00:15)
[2020-09-28 04:40] LABS: APPEARANCE,URINE CLEAR; BILIRUBIN,URINE NEGATIVE (NEGATIVE); COLOR,URINE STRAW; GLUCOSE, URINE NEGATIVE (NEGATIVE); KETONES,URINE NEGATIVE (NEGATIVE); LEUKOCYTE ESTERASE,URINE NEGATIVE (NEGATIVE); NITRITE,URINE NEGATIVE (NEGATIVE); PROTEIN,URINE NEGATIVE (NEGATIVE); UROBILINOGEN,URINE NEGATIVE mg/dL (<2.0)
[2020-09-28 06:52] LABS: HEMATOCRIT 39.9 % (37.9-51.0); HEMOGLOBIN 13.3 g/dL (13.5-17.0); MEAN CORPUSCULAR HEMOGLOBIN 28.6 pg (27.0-33.4); MEAN CORPUSCULAR HGB CONC 33.4 g/dL (32.0-36.0); MEAN CORPUSCULAR VOLUME 86 fl (80-97); PLATELET COUNT 182 10^3/uL (150-450); RED BLOOD COUNT 4.66 10^6/uL (4.35-5.55); RED CELL DISTRIBUTION WIDTH 12.9 % (11.5-14.0); WHITE BLOOD COUNT 9.4 10^3/uL (4.0-10.5)
[2020-09-28 07:14] LABS: ALKALINE PHOSPHATASE 64 U/L (38-126); ANION GAP 11 (5-19); ASPARTATE AMINO TRANSFERASE 130 U/L (17-59); BILIRUBIN,TOTAL 1.4 mg/dL (0.2-1.3); BLOOD UREA NITROGEN 25 mg/dL (7-20); CALCIUM 9.6 mg/dL (8.4-10.2); CARBON DIOXIDE 24 mmol/L (22-30); CHLORIDE 104 mmol/L (98-107); CHOLESTEROL 187.41 mg/dL (0-200); GLUCOSE 118 mg/dL (75-110); POTASSIUM 3.7 mmol/L (3.6-5.0); TRIGLYCERIDES 117 mg/dL (<150)
--- NOTE | 2020-09-28 07:23 | EKG REPORT ---
SEVERITY:- ABNORMAL ECG - SINUS RHYTHM BIATRIAL ABNORMALITIES LAD, CONSIDER LEFT ANTERIOR FASCICULAR BLOCK LEFT VENTRICULAR HYPERTROPHY ABNORMAL T, CONSIDER ISCHEMIA, LATERAL LEADS, NEW COMPARED TO 09/27/20 YESTERDAY'S EKG, CLINICAL CHARLETTE ELATION NEEDED. ANTERIOR ST ELEVATION, PROBABLY DUE TO LVH : Confirmed by: Estuardo Madera MD 28-Sep-2020 07:22:25
[2020-09-28 07:25] LABS: DIRECT LDL 138 mg/dL (<100)
[2020-09-28] MEDS ORDERED: CARVEDILOL 6.25 MG TABLET PO SCH (08:00)
--- NOTE | 2020-09-28 09:35 | PDOC CONSULTATION ---
Consultation Consult Date: 09/28/20 Attending physician:: AGNES SILVA Provider Consulted: AARON HANSON Consult reason:: Chest pain History of Present Illness Admission Date/PCP: 09/27/20 19:19 History of Present Illness: YELITZA SHEPHERD is a 50 year old male 50-year-old male with the following active problems 1. Systemic hypertension Nicotine dependence-cigarettes Patient presented to the emergency room with complaints of substernal chest pain without radiation. No exertional component was reported. Apparently the pain lasted probably 30 minutes. His blood pressure was significantly elevated at presentation. Subsequently this was controlled. His cardiac biomarkers were abnormal and elevated but because he was chest pain-free since admission it was thought to be related to subendocardial ischemia. However subsequent troponin estimations were much higher. Patient continues to be chest pain-free. He continues to smoke cigarettes. Occasional marijuana use is reported No cocaine or other recreational drugs No prior cardiac illnesses No familial illnesses No previous surgeries. Review of systems positive for chest pain as described all other review of systems is negative. Past Medical History Cardiac Medical History: Reports: Hypertension Pulmonary Medical History: Reports: Asthma - as child Psychiatric Medical History: Denies: Depression Past Surgical History Past Surgical History: Reports: None Social History Smoking Status: Current Every Day Smoker Cigarettes Packs Per Day: 1.5 Electronic Cigarette use?: No Number of Years Smokin Last Time Smoked: 09/26/20 Frequency of Alcohol Use: None Hx Recreational Drug Use: Yes Drugs: Marijuana Hx Prescription Drug Abuse: No - only marijuana rare occasonal - Advance Directive Resuscitation Status: Full Code Family History Family History: Other - Patient informs me that he does not know his family history because he was given up for adoption Parental Family History Reviewed: Yes - No familial illnesses Children Family History Reviewed: NA Sibling(s) Family History Reviewed.: NA Medication/Allergy Home Medications: Lisinopril/Hydrochlorothiazide [Lisinopril-Hctz 20-12.5 mg Tab] 1 tab PO Q12 09/27/20 Allergies/Adverse Reactions: Penicillins Allergy (Verified 09/27/20 13:40) Review of Systems Cardiovascular: PRESENT: chest pain Respiratory: ABSENT: as per HPI, cough, dyspnea, hemoptysis, sputum, other Gastrointestinal: ABSENT: abdominal pain, constipation, diarrhea, hematemesis, hematochezia, nausea, vomiting Musculoskeletal: ABSENT: as per HPI, back pain, deformity, joint swelling, muscle weakness, other Neurological: ABSENT: as per HPI, abnormal gait, abnormal movements, abnormal speech, confusion, convulsions, dizziness, focal weakness, frequent falls, lack of coordination, memory loss, numbness, paresthesias, restless legs, syncope, tingling, tremor(s), vertigo, weakness, other Physical Exam Vital Signs: Temp Pulse Resp BP Pulse Ox 98.5 F 78 18 144/95 H 100 09/28/20 02:31 09/28/20 07:00 09/28/20 02:31 09/28/20 07:00 09/28/20 07:00 Intake & Output 09/27/20 09/28/20 09/29/20 06:59 06:59 06:59 Intake Total 314 Balance 314 Weight 97.6 kg General appearance: PRESENT: no acute distress, cooperative, well-developed, well-nourished Head exam: PRESENT: atraumatic, normocephalic Eye exam: PRESENT: conjunctiva pink, EOMI Mouth exam: PRESENT: moist Respiratory exam: PRESENT: clear to auscultation darren, symmetrical, unlabored Cardiovascular exam: PRESENT: RRR, +S1, +S2 Pulses: PRESENT: normal radial pulses GI/Abdominal exam: PRESENT: soft Rectal exam: PRESENT: deferred Neurological exam: PRESENT: alert, awake, oriented to person, oriented to place, oriented to time, oriented to situation Psychiatric exam: PRESENT: appropriate affect Skin exam: PRESENT: dry, intact, normal color Results Laboratory Results: 09/28/20 06:15 09/27/20 09/27/20 09/27/20 13:48 13:48 22:00 WBC 7.2 RBC 5.09 Hgb 14.2 Hct 43.4 MCV 85 MCH 27.9 MCHC 32.8 RDW 12.7 Plt Count 185 Seg Neutrophils % 69.3 Sodium 139.5 Potassium 4.1 Chloride 105 Carbon Dioxide 24 Anion Gap 11 BUN 26 H Creatinine 1.35 H Est GFR ( Amer) > 60 Glucose 113 H Calcium 9.4 Magnesium Total Bilirubin 1.1 AST 79 H Alkaline Phosphatase 70 Total Protein 7.6 Albumin 4.6 Triglycerides Cholesterol LDL Cholesterol Direct VLDL Cholesterol HDL Cholesterol Urine Color STRAW Urine Appearance CLEAR Urine pH 5.0 Ur Specific [place] 1.010 Urine Protein NEGATIVE Urine Glucose (UA) NEGATIVE Urine Ketones NEGATIVE Urine Blood SMALL H Urine Nitrite NEGATIVE Ur Leukocyte Esterase NEGATIVE Urine WBC (Auto) 1 Urine RBC (Auto) 1 09/28/20 09/28/20 06:15 06:15 WBC 9.4 RBC 4.66 Hgb 13.3 L Hct 39.9 MCV 86 MCH 28.6 MCHC 33.4 RDW 12.9 Plt Count 182 Seg Neutrophils % Sodium 139.4 Potassium 3.7 Chloride 104 Carbon Dioxide 24 Anion Gap 11 BUN 25 H Creatinine 1.25 Est GFR ( Amer) > 60 Glucose 118 H Calcium 9.6 Magnesium 2.1 Total Bilirubin 1.4 H AST 130 H Alkaline Phosphatase 64 Total Protein 7.0 Albumin 4.0 Triglycerides 117 Cholesterol 187.41 LDL Cholesterol Direct 138 H VLDL Cholesterol 23.0 HDL Cholesterol 34 L Urine Color Urine Appearance Urine pH Ur Specific [place] Urine Protein Urine Glucose (UA) Urine Ketones Urine Blood Urine Nitrite Ur Leukocyte Esterase Urine WBC (Auto) Urine RBC (Auto) 09/27/20 09/27/20 09/27/20 13:48 13:48 16:15 Creatine Kinase 809 H CK-MB (CK-2) 10.70 H Troponin I 0.065 0.102 NT-Pro-B Natriuret Pep 09/27/20 09/27/20 09/28/20 22:05 22:05 06:15 Creatine Kinase CK-MB (CK-2) Troponin I 1.520 14.300 NT-Pro-B Natriuret Pep 6090 H EKG Comments: Twelve-lead EKG 09/28/2020. Independently viewed by me. Sinus rhythm, 66 bpm, biatrial abnormalities, left ventricular hypertrophy with repolarization abnormality, lateral ST changes suggestive of ischemia. Twelve-lead EKG 09/27/2020. Independently viewed by me. Sinus tachycardia 118 bpm, biatrial abnormalities, left ventricular hypertrophy. QTC is 483 ms Troponin 09/27/2020 1348-0.065 09/27/2020 1615-0.102 09/27/2020 2205 1.52 09/28/2020 0615-14.3 Impressions: Chest X-Ray 09/27/20 13:40 IMPRESSION: Cardiomegaly without central vascular congestion. Assessment & Plan - Diagnosis (1) NSTEMI (non-ST elevated myocardial infarction) Is this a current diagnosis for this admission?: Yes Plan: Patient is chest pain-free He had brief episode of chest pain at presentation Given history of smoking and hypertension and with significant elevated troponin he will need to be transferred for cardiac catheterization Initiate therapy with aspirin 81 mg daily High-dose statin Beta-ky Systemic heparinization also. I discussed the care plan with the patient and he is agreeable. He requires transfer for cardiac catheterization (2) Hypertensive emergency Is this a current diagnosis for this admission?: Yes Plan: Blood pressure is better controlled
[2020-09-28 09:41] LABS: ABSOLUTE LYMPHOCYTES (AUTO) 1.8 10^3/uL (0.5-4.7); ABSOLUTE MONOCYTES (AUTO) 0.5 10^3/uL (0.1-1.4); ABSOLUTE NEUT (AUTO) 7.5 10^3/uL (1.7-8.2); BASOPHILS % (AUTO) 0.3 % (0-2); EOSINOPHILS % (AUTO) 0.2 % (0-6); HEMOGLOBIN 13.6 g/dL (13.5-17.0); LYMPHOCYTES % (AUTO) 18.3 % (13-45); MEAN CORPUSCULAR HEMOGLOBIN 28.2 pg (27.0-33.4); MEAN CORPUSCULAR HGB CONC 33.2 g/dL (32.0-36.0); MEAN CORPUSCULAR VOLUME 85 fl (80-97); MONOCYTES % (AUTO) 5.5 % (3-13); PLATELET COUNT 179 10^3/uL (150-450); RED BLOOD COUNT 4.82 10^6/uL (4.35-5.55); RED CELL DISTRIBUTION WIDTH 12.6 % (11.5-14.0); SEGMENTED NEUTROPHILS % (AUTO) 75.7 % (42-78); TOTAL CELLS COUNTED % (AUTO) 100 %; WHITE BLOOD COUNT 9.9 10^3/uL (4.0-10.5)
--- NOTE | 2020-09-28 09:41 | XCELERA REPORT ---
[address] [address] Transthoracic Echocardiogram Report Name: YELITZA SHEPHERD Age: 50 yrs Gender: Male : 1970 Patient Status: Inpatient Patient Location: [place] [address]^A Study Date: 09/27/2020 08:23 PM History: VIDHI Height: 73 in Weight: 223 lb BSA: 2.3 m2 Procedure: A complete two-dimensional transthoracic echocardiogram was performed (2D, M-mode, spectral and color flow Doppler). Reason For Study: CHRONIC CHF Previous Evaluation: No previous studies were available. History: VIDHI. Ordering Physician: AGNES SILVA Performed By: Saranya Flynn Interpretation Summary The left ventricle is moderately dilated. The Ejection Fraction estimate is 20-25% Left ventricular systolic function is moderate to severely reduced. The right ventricle is normal in size and function. There is a mild amount of mitral regurgitation There is no aortic valve stenosis There is a trace amount of tricuspid regurgitation There is no pericardial effusion. MMode/2D Measurements & Calculations RVDd: 2.0 cm LVIDd: 7.0 cm FS: 8.0 % Ao root diam: IVSd: 1.5 cm LVIDs: 6.4 cm EDV(Teich): 3.3 cm LVPWd: 1.3 cm 252.7 ml Ao root area: ESV(Teich): 8.7 cm2 209.5 ml LA dimension: EF(Teich): 17.1 % 3.7 cm LVLd ap4: 9.3 cm SV(MOD-sp4): 120.0 ml EDV(MOD-sp4): 250.0 ml LVLs ap4: 7.7 cm ESV(MOD-sp4): 130.0 ml EF(MOD-sp4): 48.0 % Doppler Measurements & Calculations MV E max yolette: MV P1/2t max yolette: Ao V2 max: LV V1 max P.5 cm/sec 88.8 cm/sec 145.3 cm/sec 2.8 mmHg MV A max yolette: MV P1/2t: 72.1 msec Ao max P.4 mmHg LV V1 max: 90.1 cm/sec MVA(P1/2t): 3.1 cm2 83.0 cm/sec MV E/A: 0.75 MV dec slope: 360.8 cm/sec2 MV dec time: 0.20 sec PA V2 max: PI end-d yolette: MV P1/2t-pr_phl: 78.8 cm/sec 76.0 cm/sec 72.1 msec PA max P.5 mmHg Left Ventricle The left ventricle is moderately dilated. There is severe concentric left ventricular hypertrophy. Left ventricular systolic function is moderate to severely reduced. The Ejection Fraction estimate is 20-25%. Doppler measurements suggest impaired left ventricular relaxation, which is associated with grade I/IV or mild diastolic dysfunction. There is moderate to severe global hypokinesis of the left ventricle. Right Ventricle The right ventricle is normal in size and function. Atria The right atrium is normal. The left atrium is mildly dilated. Mitral Valve The mitral valve is grossly normal. There is no evidence of mitral valve prolapse. There is no mitral valve stenosis. There is a mild amount of mitral regurgitation. Aortic Valve The aortic valve opens well. The aortic valve is not well visualized secondary to technical limitations. There is no aortic valve stenosis. No aortic regurgitation is present. Tricuspid Valve The tricuspid valve is normal in structure and function. There is no tricuspid stenosis. There is a trace amount of tricuspid regurgitation. Tricuspid regurgitation jet envelope not well defined to measure RV systolic pressure accurately. Pulmonic Valve The pulmonic valve is not well seen, but is grossly normal. There is no pulmonic valvular stenosis. There is a trace amount of pulmonic regurgitation. Great Vessels The aortic root is normal size. The inferior vena cava appeared normal and decreased < 50% with respiration (RAP 10-15 mmHg). Effusions There is no pericardial effusion. : AGNES SILVA Anil
[2020-09-28 09:44] LABS: PARTIAL THROMBOPLASTIN TIME 29.7 SEC (23.5-35.8); PROTHROMBIN TIME 13.4 SEC (11.4-15.4)
[2020-09-28] MEDS ORDERED: HEPARIN SODIUM,PORCINE/D5W 25,000 UNIT/250 ML RTUINJ IV PRN (09:53)
--- NOTE | 2020-09-28 09:55 | PDOC TRANSFER SUMMARY ---
General Admission Date/PCP: 09/27/20 19:19 Resuscitation Status: Full Code - Transfer Diagnosis (1) NSTEMI (non-ST elevated myocardial infarction) Is this a current diagnosis for this admission?: Yes (2) Chest pain Is this a current diagnosis for this admission?: Yes (3) Chronic CHF Is this a current diagnosis for this admission?: Yes (4) Hypertensive emergency Is this a current diagnosis for this admission?: Yes (5) Transaminitis Is this a current diagnosis for this admission?: Yes - Transfer Medications Home Medications: Lisinopril/Hydrochlorothiazide [Lisinopril-Hctz 20-12.5 mg Tab] 1 tab PO Q12 09/27/20 Transfer Medications: Current Medications Acetaminophen (Acetaminophen 325 Mg Tablet) 650 mg PO Q4HP PRN PRN Reason: FOR PAIN Stop: 10/27/20 19:38 Al Hydrox/Mg Hydrox/Simethicone (Mag Hydrox/Al Hydrox/Simeth Susp 30 Ml Udcup) 30 ml PO Q6HP PRN PRN Reason: HEARTBURN Stop: 10/27/20 19:38 Albuterol (Albuterol Sulfate 0.083% Neb 2.5 Mg/3 Ml Ampul) 2.5 mg NEB RTQ6HP PRN PRN Reason: SHORTNESS OF BREATH Stop: 10/27/20 19:38 Aspirin (Aspirin 81 Mg Tablet, Ent Coated) 81 mg PO DAILY [facility] Stop: 10/28/20 09:59 Last Admin: 09/28/20 09:35 Dose: 81 mg Documented by: Carvedilol (Carvedilol 6.25 Mg Tablet) 6.25 mg PO BIDBS KEVIN Stop: 10/28/20 07:59 Last Admin: 09/28/20 09:40 Dose: 6.25 mg Documented by: Furosemide (Furosemide Inj/Pf 40 Mg/4 Ml Sdv) 40 mg IV DAILY KEVIN Stop: 10/28/20 09:59 Last Admin: 09/28/20 09:35 Dose: 40 mg Documented by: Nitroglycerin/Dextrose (Ntg Rtu 50 Mg/D5w 250 Ml Iv Premix Bottle) 50 mg in 250 mls @ 0 mls/hr IV CONTINUOUS PRN; Protocol PRN Reason: THIS MED IS NOT "PRN" Stop: 10/27/20 19:50 Last Titration: 09/27/20 23:27 Dose: 25 mcg/min, 7.5 mls/hr Documented by: Heparin Sodium/Dextrose (Heparin Rtu 25,000 Unit/250 Ml D5w Premix) 250 mls @ 0 mls/hr IV CONTINUOUS PRN; Protocol PRN Reason: THIS MED IS NOT "PRN" Stop: 10/28/20 09:52 Influenza Virus Vaccine Quadrival (Influenza Quad (6mos+) Vac 0.5 Ml Syr) 0.5 ml IM .ONCE ONE Stop: 09/29/20 08:01 Lisinopril (Lisinopril 10 Mg Tablet) 20 mg PO Q12 KEVIN Stop: 10/28/20 09:59 Last Admin: 09/28/20 09:35 Dose: 20 mg Documented by: Ondansetron HCl (Ondansetron Hcl Inj/Pf 4 Mg/2 Ml Sdv) 4 mg IV Q6HP PRN PRN Reason: FOR NAUSEA/VOMITING Stop: 10/27/20 19:38 - Allergies Allergies/Adverse Reactions: Penicillins Allergy (Verified 09/27/20 13:40) Hospital Course Hospital Course: YELITZA SHEPHERD is a 50 year old male with history of hypertension, who presents to the hospital with complaints of acute onset chest pain which started earlier today. Describes the chest pain as substernal but with no particular alleviating or aggravating factors. Not worsened by exertion and not improved by rest. No particular radiation either. He also experienced a brief episode of blurred vision. He states he has been taking his high blood pressure medications twice a day but he has told his primary care doctor that he is not doing anything for his blood pressure. In the emergency department, patient was found to be significantly hypertensive and started on IV treatments. His chest pain is currently resolved but he is still quite hypertensive with BP in the 180s systolic during my encounter. He also admits to significant orthopnea and PND. He denies any leg swelling. Always sleeps in an inclined position. Denies any cardiac history. (1) NSTEMI (non-ST elevated myocardial infarction) Heparin Drip, Nitro, BB, CAMI, Statins, ASA. Being transferred for [facility]. (2) Hypertensive emergency Characterized by significant hypertension, chest pain, elevated troponin and elevated creatinine. Admit to IMCU. I will place patient on nitroglycerin drip and bring down his MAP gradually. We will also resume his lisinopril. Hold hydrochlorothiazide for now as he is getting Lasix. Monitor on telemetry. (3) Chronic CHF Received Lasix in the ER. He complains of orthopnea, PND. Chest x-ray is notable for mild cardiomegaly. I suspect he likely has chronic diastolic failure from uncontrolled h ypertension. We will get an echocardiogram IV Lasix daily for now. (4) Chest pain Suspect secondary to type II [place] from hypertensive emergency. EKG shows sinus tach with early repolarization changes associated with LVH. Troponin is wheezing to 0.1. We will continue to trend. Will give aspirin. (5) Transaminitis Monitor Physical Exam Vital Signs: Temp Pulse Resp BP Pulse Ox 98.5 F 78 18 144/95 H 100 09/28/20 02:31 09/28/20 07:00 09/28/20 02:31 09/28/20 07:00 09/28/20 07:00 Intake & Output 09/27/20 09/28/20 09/29/20 06:59 06:59 06:59 Intake Total 314 Balance 314 Weight 97.6 kg General appearance: PRESENT: no acute distress, well-developed, well-nourished Head exam: PRESENT: atraumatic, normocephalic Neck exam: ABSENT: carotid bruit, JVD, lymphadenopathy, thyromegaly Respiratory exam: PRESENT: clear to auscultation darren. ABSENT: rales, rhonchi, wheezes Cardiovascular exam: PRESENT: RRR. ABSENT: diastolic murmur, rubs, systolic murmur GI/Abdominal exam: PRESENT: normal bowel sounds, soft. ABSENT: distended, guarding, mass, organolmegaly, rebound, tenderness Neurological exam: PRESENT: alert, awake, oriented to person, oriented to place, oriented to time, oriented to situation, CN II-XII grossly intact. ABSENT: motor sensory deficit Skin exam: PRESENT: dry, intact, warm. ABSENT: cyanosis, rash Results Laboratory Results: 09/28/20 09:19 09/28/20 06:15 09/27/20 09/27/20 09/27/20 13:48 13:48 22:00 WBC 7.2 RBC 5.09 Hgb 14.2 Hct 43.4 MCV 85 MCH 27.9 MCHC 32.8 RDW 12.7 Plt Count 185 Seg Neutrophils % 69.3 Sodium 139.5 Potassium 4.1 Chloride 105 Carbon Dioxide 24 Anion Gap 11 BUN 26 H Creatinine 1.35 H Est GFR ( Amer) > 60 Glucose 113 H Calcium 9.4 Magnesium Total Bilirubin 1.1 AST 79 H Alkaline Phosphatase 70 Total Protein 7.6 Albumin 4.6 Triglycerides Cholesterol LDL Cholesterol Direct VLDL Cholesterol HDL Cholesterol Urine Color STRAW Urine Appearance CLEAR Urine pH 5.0 Ur Specific [place] 1.010 Urine Protein NEGATIVE Urine Glucose (UA) NEGATIVE Urine Ketones NEGATIVE Urine Blood SMALL H Urine Nitrite NEGATIVE Ur Leukocyte Esterase NEGATIVE Urine WBC (Auto) 1 Urine RBC (Auto) 1 09/28/20 09/28/20 09/28/20 06:15 06:15 09:19 WBC 9.4 9.9 RBC 4.66 4.82 Hgb 13.3 L 13.6 Hct 39.9 41.0 MCV 86 85 MCH 28.6 28.2 MCHC 33.4 33.2 RDW 12.9 12.6 Plt Count 182 179 Seg Neutrophils % 75.7 Sodium 139.4 Potassium 3.7 Chloride 104 Carbon Dioxide 24 Anion Gap 11 BUN 25 H Creatinine 1.25 Est GFR ( Amer) > 60 Glucose 118 H Calcium 9.6 Magnesium 2.1 Total Bilirubin 1.4 H AST 130 H Alkaline Phosphatase 64 Total Protein 7.0 Albumin 4.0 Triglycerides 117 Cholesterol 187.41 LDL Cholesterol Direct 138 H VLDL Cholesterol 23.0 HDL Cholesterol 34 L Urine Color Urine Appearance Urine pH Ur Specific [place] Urine Protein Urine Glucose (UA) Urine Ketones Urine Blood Urine Nitrite Ur Leukocyte Esterase Urine WBC (Auto) Urine RBC (Auto) 09/27/20 09/27/20 09/27/20 13:48 13:48 16:15 Creatine Kinase 809 H CK-MB (CK-2) 10.70 H Troponin I 0.065 0.102 NT-Pro-B Natriuret Pep 09/27/20 09/27/20 09/28/20 22:05 22:05 06:15 Creatine Kinase CK-MB (CK-2) Troponin I 1.520 14.300 NT-Pro-B Natriuret Pep 6090 H Impressions: Chest X-Ray 09/27/20 13:40 IMPRESSION: Cardiomegaly without central vascular congestion.
[2020-09-28] MEDS ORDERED: FUROSEMIDE INJ/PF 40 MG/4 ML SDV IV SCH (10:00)
[2020-09-28] MEDS ORDERED: ENOXAPARIN SODIUM INJ 100 MG/1 ML DISP.SYRIN SUBCUT SCH (10:00)
[2020-09-28] MEDS ORDERED: LISINOPRIL 10 MG TABLET PO SCH (10:00)
[2020-09-28] MEDS ORDERED: HEPARIN SOD (PORCINE) 1,000 UNIT/ML 10 ML VIAL IV PRN (10:00)
[2020-09-28] MEDS ORDERED: ASPIRIN 81 MG TABLET, ENT COATED PO SCH (10:00)
[2020-09-28 10:27] VITALS: BP 155/85
[2020-09-28 10:42] LABS: TROPONIN I 0.065 ng/mL
--- NOTE | 2020-09-28 12:30 | EKG REPORT ---
SEVERITY:- ABNORMAL ECG - SINUS RHYTHM BIATRIAL ABNORMALITIES NONSPECIFIC INTRAVENTRICULAR CONDUCTION DELAY LEFT VENTRICULAR HYPERTROPHY : Confirmed by: Estuardo Madera MD 28-Sep-2020 12:30:01
[2020-09-29] MEDS ORDERED: INFLUENZA QUAD (6MOS+) 2020-21 VAC 0.5 ML SYR IM ONE (08:00)
== END 2020-09-28 10:21 | disposition short-term general hospital (02) | DRG 281 ==
LOC: ER 13:17 → EH 19:19 → 3S 23:50
PROVIDERS: ADMIT Family Medicine; ATTEND Family Medicine
DX: I21.A1 Myocardial infarction type 2 (principal); I16.1 Hypertensive emergency; I50.32 Chronic diastolic (congestive) heart failure; R74.01 Elevation of levels of liver transaminase levels; J45.909 Unspecified asthma, uncomplicated; F17.210 Nicotine dependence, cigarettes, uncomplicated; I11.0 Hypertensive heart disease with heart failure; Z79.899 Other long term (current) drug therapy; Z88.0 Allergy status to penicillin; Z23 Encounter for immunization; Z20.828 Contact with and (suspected) exposure to other viral communicable diseases
CPT/HCPCS: 36415; 71045; 80053; 80061; 81001; 82550; 82553; 83036; 83735; 83880; 84484; 85025; 85027; 85610; 85730; 93005; 93010; 93306; 96374; 96375; 96376; 99285; 0241U; C9803; J1650; J1940; J3490

== ENCOUNTER 2020-11-19 18:00 | Emergency (ER) | payer MEDICAID ==
--- NOTE | 2020-11-19 18:52 | ER Document Report ---
ED Medical Screen (RME) - General Chief Complaint: Chest Pain Stated Complaint: RIGHT ARM/SHOULDER/ABDOMINAL PAIN Time Seen by Provider: 11/19/20 18:45 Notes: HPI: 50-year-old male presenting for recurrent episodes of a squeezing sensation in the left chest over the last 2 days. Patient states the episodes may last 2 minutes with some accompanying shortness of breath and then go away. Patient states he was seen for similar back in September and was transferred to [place] where he had a catheterization and was told that everything looked all right per the patient. Pain-free at this time PHYSICAL EXAMINATION: Lung sounds are clear to auscultation regular rate and rhythm no reproducible pain in the upper abdomen I have greeted and performed a rapid initial assessment of this patient. A comprehensive ED assessment and evaluation of the patient, analysis of test results and completion of medical decision making process will be conducted by an additional ED providers. Please note that clinical decision making for this patient was made during the 2019 pandemic of novel coronavirus which caused a significant strain on the healthcare system including at this particular facility. Criteria for admission discharge and level of care decisions as well as treatment decisions have necessarily changed TRAVEL OUTSIDE OF THE [place] IN LAST 30 DAYS: No - Related Data Allergies/Adverse Reactions: Penicillins Allergy (Verified 11/19/20 18:44) Home Medications: carvedilol. lasix. entresto Past Medical History - Past Medical History Cardiac Medical History: Reports: Hx Hypertension Pulmonary Medical History: Reports: Hx Asthma - as child Renal/ Medical History: Denies: Hx Peritoneal Dialysis Psychiatric Medical History: Denies: Hx Depression - Immunizations Immunizations up to date: Yes Hx Diphtheria, Pertussis, Tetanus Vaccination: Yes - 02/19/2018 Physical Exam - Vital signs Vitals: Temp Pulse Resp BP Pulse Ox 98.2 F 69 20 165/86 H 99 11/19/20 18:42 11/19/20 18:42 11/19/20 18:42 11/19/20 18:42 11/19/20 18:42 Course - Vital Signs Vital signs: Temp Pulse Resp BP Pulse Ox 98.2 F 69 20 165/86 H 99 11/19/20 18:42 11/19/20 18:42 11/19/20 18:42 11/19/20 18:42 11/19/20 18:42
--- NOTE | 2020-11-19 19:47 | RADIOLOGY REPORT (SQ) ---
EXAM DESCRIPTION: CHEST SINGLE VIEW IMAGES COMPLETED DATE/TIME: 11/19/2020 4:39 pm REASON FOR STUDY: chest pain COMPARISON: 09/27/2020 EXAM PARAMETERS: NUMBER OF VIEWS: One view. TECHNIQUE: Single frontal radiographic view of the chest acquired. RADIATION DOSE: NA LIMITATIONS: External leads partially obscure underlying structures. FINDINGS: LUNGS AND PLEURA: No opacities, masses or pneumothorax. No pleural effusion. MEDIASTINUM AND HILAR STRUCTURES: No masses. Contour normal. HEART AND VASCULAR STRUCTURES: Stable cardiomegaly. No pulmonary vascular congestion. BONES: No acute findings. HARDWARE: None in the chest. OTHER: No other significant finding. IMPRESSION: Stable cardiomegaly. No acute radiographic abnormality. TECHNICAL DOCUMENTATION: JOB ID: [id number] 2010 [employer]- All Rights Reserved Reading location - IP/workstation name: [email or web address]
[2020-11-19 20:14] LABS: ABSOLUTE BASOPHILS # (AUTO) 0.1 10^3/uL (0.0-0.2); ABSOLUTE EOSINOPHILS # (AUTO) 0.1 10^3/uL (0.0-0.6); ABSOLUTE MONOCYTES (AUTO) 0.6 10^3/uL (0.1-1.4); ABSOLUTE NEUT (AUTO) 4.5 10^3/uL (1.7-8.2); BASOPHILS % (AUTO) 1.9 % (0-2); EOSINOPHILS % (AUTO) 1.3 % (0-6); HEMATOCRIT 43.2 % (37.9-51.0); LYMPHOCYTES % (AUTO) 27.4 % (13-45); MEAN CORPUSCULAR HEMOGLOBIN 27.7 pg (27.0-33.4); MEAN CORPUSCULAR HGB CONC 32.5 g/dL (32.0-36.0); MEAN CORPUSCULAR VOLUME 86 fl (80-97); MONOCYTES % (AUTO) 8.4 % (3-13); PLATELET COUNT 202 10^3/uL (150-450); RED BLOOD COUNT 5.05 10^6/uL (4.35-5.55); RED CELL DISTRIBUTION WIDTH 13.1 % (11.5-14.0); TOTAL CELLS COUNTED % (AUTO) 100 %; WHITE BLOOD COUNT 7.4 10^3/uL (4.0-10.5)
[2020-11-19 20:28] LABS: ALBUMIN 4.3 g/dL (3.5-5.0); ALKALINE PHOSPHATASE 72 U/L (38-126); ANION GAP 8 (5-19); ASPARTATE AMINO TRANSFERASE 33 U/L (17-59); BILIRUBIN,DIRECT 0.2 mg/dL (0.0-0.4); BILIRUBIN,TOTAL 1.1 mg/dL (0.2-1.3); BLOOD UREA NITROGEN 20 mg/dL (7-20); CALCIUM 9.4 mg/dL (8.4-10.2); CARBON DIOXIDE 28 mmol/L (22-30); CHLORIDE 107 mmol/L (98-107); GLUCOSE 95 mg/dL (75-110); POTASSIUM 4.3 mmol/L (3.6-5.0); TOTAL PROTEIN 7.6 g/dL (6.3-8.2)
--- NOTE | 2020-11-19 20:57 | ER Document Report ---
ED Cardiac - General Chief Complaint: Chest Pain Stated Complaint: RIGHT ARM/SHOULDER/ABDOMINAL PAIN Time Seen by Provider: 11/19/20 18:45 Primary Care Provider: JADYN SCHNEIDER DO [ACTIVE STAFF] - 11/21/20 Notes: Patient is a 50-year-old male who comes emergency department for chief complaint of pains and numbness sensation that shoot down his right arm. He states that shot up into his shoulder and into the right side of his chest so he became concerned and came in for evaluation. He denies injury, however he does state that ever since he had a cardiac catheterization in September of last year in the same arm he has had similar symptoms although usually not this intense. He states he is hoping for referral so he can get nerve testing. He denies any current chest pain, shortness of breath, denies having nausea or vomiting, fever or chills. He also has a secondary complaint of an infected broken tooth in the left lower jawline. He already called the dentist but the cannot give him an appointment within the next couple of months. Patient states he is stopping smoking, he is taking his furosemide, beta-ky as prescribed. He states that his cardiac catheterization was actually negative in September. He states he is still following with cardiology. TRAVEL OUTSIDE OF THE [place] IN LAST 30 DAYS: No - Related Data Allergies/Adverse Reactions: Penicillins Allergy (Verified 11/19/20 18:44) Home Medications: carvedilol. lasix. entresto Past Medical History - General Information source: Patient - Social History Smoking Status: Current Every Day Smoker Smoking Education Provided: Yes - <3 min Frequency of alcohol use: None Drug Abuse: None Lives with: Family Family History: Reviewed & Not Pertinent, Other - Patient informs me that he does not know his family history because he was given up for adoption - Past Medical History Cardiac Medical History: Reports: Hx Hypertension Pulmonary Medical History: Reports: Hx Asthma - as child Renal/ Medical History: Denies: Hx Peritoneal Dialysis Psychiatric Medical History: Denies: Hx Depression - Immunizations Immunizations up to date: Yes Hx Diphtheria, Pertussis, Tetanus Vaccination: Yes - 02/19/2018 Review of Systems - Review of Systems Constitutional: No symptoms reported EENT: See HPI Cardiovascular: See HPI Respiratory: No symptoms reported Gastrointestinal: No symptoms reported Genitourinary: No symptoms reported Male Genitourinary: No symptoms reported Musculoskeletal: See HPI Skin: No symptoms reported Hematologic/Lymphatic: No symptoms reported Neurological/Psychological: No symptoms reported Physical Exam - Vital signs Vitals: Temp Pulse Resp BP Pulse Ox 98.2 F 69 20 165/86 H 99 11/19/20 18:42 11/19/20 18:42 11/19/20 18:42 11/19/20 18:42 11/19/20 18:42 - Notes Notes: GENERAL: Alert, interacts well. No acute distress. HEAD: Normocephalic, atraumatic. EYES: Pupils equal, round, and reactive to light. Extraocular movements intact. ENT: Oral mucosa moist, tongue midline. Oropharynx unremarkable. Airway patent. Very poor dentition, left lower posterior molar with fracture and erythema suggesting infection. No drainable abscess noted. Otherwise unremarkable. Nares patent, sinuses non-tender, ear canals unremarkable, TM's intact. NECK: Full range of motion. Supple. Trachea midline. No lymphadenopathy. LUNGS: Clear to auscultation bilaterally, no wheezes, rales, or rhonchi. No respiratory distress. Non-tender chest wall. HEART: Regular rate and rhythm. No murmur ABDOMEN: Soft, non-tender. Non-distended. EXTREMITIES: Moves all 4 extremities spontaneously. No edema, normal radial and dorsalis pedis pulses bilaterally. No cyanosis. BACK: no cervical, thoracic, lumbar midline tenderness. No saddle anesthesia, normal distal neurovascular exam. Moves all extremities in full range of motion. NEUROLOGICAL: Alert and oriented x3. Normal speech. Cranial nerves II through XII grossly intact. Strength 5/5 in all extremities. PSYCH: Normal affect, normal mood. SKIN: Warm, dry, normal turgor. No rashes or lesions noted. Course - Re-evaluation Re-evalutation: Patient does have multiple complaints. His main complaint is right arm pains with shooting pains and paresthesias. I did perform imaging of the neck after we discussed options, however this was unremarkable. Patient states this has been since his cardiac catheterization through the same arm. He states it is becoming more noticeable. He has full range of motion, no deficit on my exam. I did discuss with Dr. Eubanks. Patient will be referred to orthopedics. Patient states understanding and agreement with this. He does state that tramadol helped a lot with his pain and he is requesting this for prescription along with ibuprofen. I discussed using ibuprofen only if absolutely needed along with the pain medication only if absolutely needed. Chest x-ray unremarkable, EKG without acute ischemic findings, troponins cycled and negative. Remaining work-up unremarkable. Patient does have a dental infection but no signs of complication with this, placed on antibiotics for this. He does have dental follow-up already. Discussed work-up and return cautions. Patient states appreciation and agreement. Patient with elevated blood pressure, states he will be rechecked for this as well. - Vital Signs Vital signs: Temp Pulse Resp BP Pulse Ox 98.9 F 77 15 156/103 H 100 11/20/20 01:00 11/20/20 01:00 11/20/20 01:00 11/20/20 01:00 11/20/20 01:00 - Laboratory Results Result Diagrams: 11/19/20 19:45 11/19/20 19:45 Critical Laboratory Results Reviewed: No Critical Results - Radiology Results Critical Radiology Results Reviewed: No Critical Results - EKG Interpretation by Me Additional EKG results interpreted by me: EKG shows sinus rhythm at a rate of 80, QTc 476, left ventricular hypertrophy, T wave inversions in V5 and V6, no ST segment changes in consecutive leads. No significant change compared to prior. Discharge - Discharge Clinical Impression: Right arm pain, Pain, dental Right shoulder pain Qualifiers: Chronicity: acute Qualified Code(s): M25.511 - Pain in right shoulder Condition: Stable Disposition: HOME, SELF-CARE Additional Instructions: Your work-up today does not show any abnormal findings. Follow-up with the orthopedics referral for your right arm symptoms for additional testing and management (call Saturday). Take the clindamycin as prescribed for your dental infection, follow-up with your dentist for care. Return if you worsen including developing swelling of the face, severe worsening pain, fever, passing out, or any other concerning or worsening symptoms. Prescriptions: Tramadol HCl [Ultram 50 mg Tablet] 50 mg PO Q4HP PRN #20 tab PRN Reason: Clindamycin HCl [Cleocin 150 mg Capsule] 150 mg PO Q6 #56 capsule Ibuprofen [Motrin 800 mg Tablet] 800 mg PO TID PRN #14 tablet PRN Reason: Forms: Return to Work Referrals: JADYN SCHNEIDER DO [ACTIVE STAFF] - 11/21/20
--- NOTE | 2020-11-19 21:53 | RADIOLOGY REPORT (SQ) ---
EXAM DESCRIPTION: Site: CT CERVICAL SPINE WITHOUT RP: CT CERVICAL SPINE WITHOUT IV CONTRAST CLINICAL HISTORY: 50 years Male; right arm paresthesias and pain; TECHNIQUE: Noncontrast cervical spine CT with sagittal and coronal reconstructions. All CT scans at this facility use dose modulation, iterative reconstruction, and/or weight based dosing when appropriate to reduce radiation dose to as low as reasonably achievable. COMPARISON: None FINDINGS: Alignment is anatomic. C4-C5: Mild posterior osteophytic ridging with bilateral foraminal stenosis. No prevertebral edema. There is no acute fracture of the cervical spine. No epidural hematoma. IMPRESSION: 1. No acute cervical spine fracture or subluxation.
[2020-11-20 01:01] VITALS: BP 156/103
--- NOTE | 2020-11-20 20:28 | EKG REPORT ---
SEVERITY:- ABNORMAL ECG - SINUS RHYTHM DARLENE, CONSIDER BIATRIAL ABNORMALITIES LEFT VENTRICULAR HYPERTROPHY ABNORMAL T, CONSIDER ISCHEMIA, LATERAL LEADS BORDERLINE PROLONGED QT INTERVAL : Confirmed by: Greer Machado MD 20-Nov-2020 20:27:38
== END 2020-11-20 01:00 | disposition home or self-care (01) ==
LOC: ER 18:00
DX: M25.511 Pain in right shoulder (principal); M79.601 Pain in right arm; K04.7 Periapical abscess without sinus; K08.89 Other specified disorders of teeth and supporting structures; R07.9 Chest pain, unspecified; R20.0 Anesthesia of skin; I11.9 Hypertensive heart disease without heart failure; Z98.890 Other specified postprocedural states; Z79.899 Other long term (current) drug therapy; Z88.0 Allergy status to penicillin
CPT/HCPCS: 36415; 71045; 72125; 80053; 83690; 84484; 85025; 93005; 93010; 99285

== ENCOUNTER 2020-12-02 00:26 | Emergency (ER) | payer MEDICAID ==
--- NOTE | 2020-12-02 00:35 | ER Document Report ---
ED Medical Screen (RME) - General Chief Complaint: Chest Pain Stated Complaint: RIGHT SIDE PAIN, CHEST PAIN Time Seen by Provider: 12/02/20 00:34 Mode of Arrival: Ambulatory Information source: Patient Notes: 50-year-old male with history of non-STEMI presenting to the emergency department with left-sided chest pain. Patient reports he bent over to tie his child shoe when the pain started at 930 tonight. He states the pain went to his left arm. He states the pain went away shortly thereafter without intervention. He is chest pain-free at this time. He denies any shortness of breath, diaphoresis nausea or vomiting. Patient is alert, oriented, no acute distress noted. Heart sounds S1-S2 present, normal rate, normal rhythm. I have greeted and performed a rapid initial assessment of this patient. A comprehensive ED assessment and evaluation of the patient, analysis of test results and completion of the medical decision making process will be conducted by additional ED providers. I have specifically instructed the patient or family members with the patient to immediately return to any nursing staff should anything change in the patient's condition or with their chief complaint. TRAVEL OUTSIDE OF THE [place] IN LAST 30 DAYS: No - Related Data Allergies/Adverse Reactions: Penicillins Allergy (Verified 11/19/20 18:44) Past Medical History - Past Medical History Cardiac Medical History: Reports: Hx Hypertension Pulmonary Medical History: Reports: Hx Asthma - as child Renal/ Medical History: Denies: Hx Peritoneal Dialysis Psychiatric Medical History: Denies: Hx Depression - Immunizations Immunizations up to date: Yes Hx Diphtheria, Pertussis, Tetanus Vaccination: Yes - 02/19/2018
[2020-12-02 01:17] LABS: ABSOLUTE BASOPHILS # (AUTO) 0.1 10^3/uL (0.0-0.2); ABSOLUTE EOSINOPHILS # (AUTO) 0.1 10^3/uL (0.0-0.6); ABSOLUTE LYMPHOCYTES (AUTO) 2.2 10^3/uL (0.5-4.7); ABSOLUTE MONOCYTES (AUTO) 0.5 10^3/uL (0.1-1.4); ABSOLUTE NEUT (AUTO) 5.1 10^3/uL (1.7-8.2); BASOPHILS % (AUTO) 0.8 % (0-2); EOSINOPHILS % (AUTO) 1.2 % (0-6); HEMATOCRIT 43.2 % (37.9-51.0); HEMOGLOBIN 13.9 g/dL (13.5-17.0); LYMPHOCYTES % (AUTO) 27.8 % (13-45); MEAN CORPUSCULAR HEMOGLOBIN 27.7 pg (27.0-33.4); MEAN CORPUSCULAR HGB CONC 32.2 g/dL (32.0-36.0); MEAN CORPUSCULAR VOLUME 86 fl (80-97); MONOCYTES % (AUTO) 6.1 % (3-13); PLATELET COUNT 225 10^3/uL (150-450); RED BLOOD COUNT 5.03 10^6/uL (4.35-5.55); RED CELL DISTRIBUTION WIDTH 13.7 % (11.5-14.0); SEGMENTED NEUTROPHILS % (AUTO) 64.1 % (42-78); TOTAL CELLS COUNTED % (AUTO) 100 %; WHITE BLOOD COUNT 7.9 10^3/uL (4.0-10.5)
--- NOTE | 2020-12-02 01:47 | RADIOLOGY REPORT (SQ) ---
EXAM DESCRIPTION: X-RAY CHEST- One View CLINICAL HISTORY: Chest pain COMPARISON: November 19, 2020 TECHNIQUE: Single view of the chest. FINDINGS: There are no discrete air space infiltrates, pneumothoraces or pleural effusions. The pulmonary vascularity is normal. The cardiomediastinal silhouette is enlarged, stable compared to prior exam. Osseous structures are unchanged. IMPRESSION: There are no acute lung parenchymal findings. Stable enlargement of the cardiac silhouette.
--- NOTE | 2020-12-02 02:08 | ER Document Report ---
ED Cardiac - General Chief Complaint: Chest Pain Stated Complaint: RIGHT SIDE PAIN, CHEST PAIN Time Seen by Provider: 12/02/20 00:34 Mode of Arrival: Ambulatory Information source: Patient Notes: 12/02/20 01:11 - ED Nursing Note by VIPUL [place] Num: [id number] : 1970 Patient Age: 50 patient presents to ED for c/o chest pain. patient reports he had the episode of chest pain ~2100 last night. patient reports it was sharp and lasted about 20 mi nutes. patient denies any pain at this time in triage, alert and oriented x 4, in NAD, ambulated independently with steady gait. Initialized on 12/02/20 01:11 - END OF NOTE ED Medical Screen ([facility]) - General Chief Complaint: Chest Pain Stated Complaint: RIGHT SIDE PAIN, CHEST PAIN Time Seen by Provider: 12/02/20 00:34 Mode of Arrival: Ambulatory Information source: Patient Notes: 50-year-old male with history of non-STEMI presenting to the emergency department with left-sided chest pain. Patient reports he bent over to tie his child shoe when the pain started at 930 tonight. He states the pain went to his left arm. He states the pain went away shortly thereafter without intervention. He is chest pain-free at this time. He denies any shortness of breath, diaphoresis nausea or vomiting. Patient is alert, oriented, no acute distress noted. Heart sounds S1-S2 present, normal rate, normal rhythm. MY NOTES 50-year-old [place] male arrives with left lateral chest pain that lasted for around 15 to 20 minutes beginning around 9:00 tonight. This occurred as he was bending over to tie his son's shoes and when he straightened up he began to have intense pain without any nausea diaphoresis or shortness of breath. 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 Patient reports last year he had a heart catheterization through his right forearm revealing no atherosclerosis and did not require any stents. He was placed on Entresto Lasix and Carvediol. Patient began to smoke cigarettes when he was 26 years old and before he had his heart catheterization he smoked 4 packs/day. Now he smokes 1 pack every 2 weeks. He denies any alcohol or drug use. He denies any weight loss fever chills cough or cold coronavirus influenza virus. Patient has a prior history of CHF and hypertension TRAVEL OUTSIDE OF THE [place] IN LAST 30 DAYS: No - Related Data Allergies/Adverse Reactions: Penicillins Allergy (Verified 11/19/20 18:44) Past Medical History - General Information source: Patient - Social History Smoking Status: Current Every Day Smoker Cigarette use (# per day): Yes Chew tobacco use (# tins/day): No Smoking Education Provided: Yes Frequency of alcohol use: None Drug Abuse: None Lives with: Family Family History: Reviewed & Not Pertinent, Other - Patient informs me that he does not know his family history because he was given up for adoption Patient has suicidal ideation: No Patient has homicidal ideation: No - Past Medical History Cardiac Medical History: Reports: Hx Hypertension Pulmonary Medical History: Reports: Hx Asthma - as child Renal/ Medical History: Denies: Hx Peritoneal Dialysis Psychiatric Medical History: Denies: Hx Depression - Immunizations Immunizations up to date: Yes Hx Diphtheria, Pertussis, Tetanus Vaccination: Yes - 02/19/2018 Review of Systems - Review of Systems Constitutional: No symptoms reported EENT: No symptoms reported Cardiovascular: See HPI, Chest pain Respiratory: No symptoms reported Gastrointestinal: No symptoms reported Genitourinary: No symptoms reported Male Genitourinary: No symptoms reported Musculoskeletal: No symptoms reported Skin: No symptoms reported Hematologic/Lymphatic: No symptoms reported Neurological/Psychological: No symptoms reported -: Yes All other systems reviewed and negative Physical Exam - Vital signs Interpretation: Normal - General General appearance: Appears well, Alert - HEENT Head: Normocephalic, Atraumatic Eyes: Normal Pupils: PERRL - Respiratory Respiratory status: No respiratory distress Chest status: Tender - Patient has tenderness to the left trapezial muscle only. No obvious abrasions or lesions ecchymosis or scars noted to left lateral chest or back. Breath sounds: Normal Chest palpation: Normal - Cardiovascular Rhythm: Regular Heart sounds: Normal auscultation Murmur: No - Abdominal Inspection: Normal Distension: No distension Bowel sounds: Normal Tenderness: Nontender Organomegaly: No organomegaly - Rectal Prostate: Other - Deferred - Genitourinary Scrotum: Other - Deferred - Back Back: Normal, Nontender - Extremities General upper extremity: Normal inspection, Nontender, Normal color, Normal ROM, Normal temperature General lower extremity: Normal inspection, Nontender, Normal color, Normal ROM, Normal temperature, Normal weight bearing. No: Trevor's sign - Neurological Neuro grossly intact: Yes Cognition: Normal Orientation: AAOx4 [place] Coma Scale Eye Opening: Spontaneous [place] Coma Scale Verbal: Oriented [place] Coma Scale Motor: Obeys Commands Haresh Coma Scale Total: 15 Speech: Normal Motor strength normal: LUE, RUE, LLE, RLE Sensory: Normal - Psychological Associated symptoms: Normal affect, Normal mood - Skin Skin Temperature: Warm Skin Moisture: Dry Skin Color: Normal Course - Laboratory Results Result Diagrams: 12/02/20 01:03 12/02/20 01:56 Laboratory Results Interpreted: 12/02/20 12/02/20 01:56 01:56 BUN 21 H Glucose 130 H Creatine Kinase 483 H Critical Laboratory Results Reviewed: Yes Attending or Supervising Physician who Reviewed Labs: JOHNNY BUSTOS JR - Radiology Results Critical Radiology Results Reviewed: Yes Attending or Supervising Physician who Reviewed Radiology: JOHNNY BUSTOS JR Discharge - Discharge Clinical Impression: Musculoskeletal chest pain, Elevated CPK Condition: Stable Disposition: HOME, SELF-CARE Additional Instructions: Follow-up with Dr. Pennington this week return to ER as needed take medicines as directed encourage fluids.
[2020-12-02 02:28] LABS: ALKALINE PHOSPHATASE 71 U/L (38-126); ANION GAP 9 (5-19); ASPARTATE AMINO TRANSFERASE 32 U/L (17-59); BILIRUBIN,DIRECT 0.1 mg/dL (0.0-0.4); BILIRUBIN,TOTAL 0.8 mg/dL (0.2-1.3); BLOOD UREA NITROGEN 21 mg/dL (7-20); CALCIUM 9.2 mg/dL (8.4-10.2); CARBON DIOXIDE 24 mmol/L (22-30); CHLORIDE 107 mmol/L (98-107); GLUCOSE 130 mg/dL (75-110); POTASSIUM 3.9 mmol/L (3.6-5.0); TOTAL PROTEIN 7.1 g/dL (6.3-8.2)
[2020-12-02] MEDS ORDERED: IBUPROFEN 800 MG TABLET PO ONE (03:21)
[2020-12-02 04:29] VITALS: BP 160/94
--- NOTE | 2020-12-02 09:51 | EKG REPORT ---
SEVERITY:- ABNORMAL ECG - SINUS RHYTHM PROBABLE LVH WITH SECONDARY REPOL ABNRM : Confirmed by: Ignacio Morocho MD 02-Dec-2020 09:50:35
== END 2020-12-02 04:31 | disposition home or self-care (01) ==
LOC: ER 00:26
DX: R07.89 Other chest pain (principal); R74.8 Abnormal levels of other serum enzymes; F17.210 Nicotine dependence, cigarettes, uncomplicated; I10 Essential (primary) hypertension; I25.2 Old myocardial infarction
CPT/HCPCS: 93005; 99285; 36415; 82550; 85025; 80053; 84484; 71045; 93010; J3490